=== PATIENT | female | born 1955 | race Caucasian/White ===

== ENCOUNTER → 2021-02-11 15:59 | Outpatient (CLI) | payer MEDICARE, MEDICAID, SELFPAY ==
--- NOTE | 2021-02-11 16:22 | DI.MRI.S_ITS ---
PROCEDURE: MR HEAD/BRAIN WO/W CON INDICATIONS: BREAST CANCER TECHNIQUE: Noncontrast axial T1 spin echo, axial T2 fast spin echo, sagittal and axial FLAIR, coronal T2 fast spin echo, axial gradient echo, axial diffusion and ADC through the brain. After the administration of contrast, axial and coronal 3D VIBE or T1 spin echo with fat saturation through the brain. COMPARISON: None. FINDINGS: Image quality: Excellent. CSF Spaces: Basal cisterns are patent. No extra-axial fluid collections. Ventricles are normal in size and shape. Brain: No midline shift. No intracranial bleeds or masses. There is mild cerebral volume loss. No abnormal intracranial enhancement. The brainstem appears normal. Diffusion-weighted images demonstrate no acute ischemic insults. No chronic ischemic insults. Normal intravascular flow voids are present. Skull and face: Calvarial marrow is normal in signal. Orbits appear normal. Sinuses: Sinuses and mastoids appear clear. IMPRESSION: 1. No evidence of metastatic disease. 2. No abnormal intracranial mass or mass effect. 3. No suspicious postcontrast enhancement. 4. Mild, diffuse cerebral volume loss. Dictated by: Dottie Munoz MD, PhD on 02/14/2021 at 10:43 Approved by: Dottie Munoz MD, PhD on 02/14/2021 at 10:47
== END ==
PROVIDERS: Referring Provider Physician Assistant; Visit Provider Physician Assistant
DX: C50.911 Malignant neoplasm of unspecified site of right female breast (principal); C79.51 Secondary malignant neoplasm of bone; D46.9 Myelodysplastic syndrome, unspecified
CPT/HCPCS: 70553; A9579

== ENCOUNTER 2021-02-17 15:11 | Inpatient (IN) | payer MEDICARE, MEDICAID, SELFPAY ==
[2021-02-17] VITALS (16 sets, daily range): BP systolic 167–212; BP diastolic 75–87; PULSE 75–100; RESP 18–20; TEMP 36–37.1; O2SAT 98–100; BMI 29.5
--- NOTE | 2021-02-17 | DI.RAD.S_ITS ---
PROCEDURE: XR FEMUR LT MIN 2V INDICATIONS: fall TECHNIQUE: For views of the femur were acquired. COMPARISON: [facility], CR, XR HIP W PEL IF DONE LT 2V, 02/17/2021, 15:34. FINDINGS: Bones: There is an intertrochanteric fracture of the proximal left femur with associated moderate posterior and lateral displacement of the distal component. There is also moderate varus angulation. The distal femur appears intact. The visualized bony pelvis also appears intact. Soft tissues: No suspicious soft tissue calcifications or masses. IMPRESSION: 1. Moderately displaced and angulated intertrochanteric fracture of the proximal left femur. Dictated by: René Parish M.D. on 02/17/2021 at 17:42 Approved by: René Parish M.D. on 02/17/2021 at 17:43
--- NOTE | 2021-02-17 15:19 | DI.RAD.S_ITS ---
PROCEDURE: XR HIP W PEL IF DONE LT 2V INDICATIONS: left hip pain,short/rotate after fall TECHNIQUE: AP pelvis with AP and lateral view of the left hip. COMPARISON: None. FINDINGS: Bones: There is a moderately displaced intertrochanteric fracture of the proximal left femur with lateral displacement of the distal component. There is associated moderate varus angulation. The hip joint appears congruent. Pelvic ring appears intact. No suspicious bony lesions. Soft tissues: The visualized bowel gas pattern is normal. IMPRESSION: 1. Moderately displaced and angulated intertrochanteric fracture of the proximal left femur. Dictated by: René Parish M.D. on 02/17/2021 at 17:28 Approved by: René Parish M.D. on 02/17/2021 at 17:30
[2021-02-17] MEDS: MORPHINE 4 MG/ML INJ IV (15:56)
--- NOTE | 2021-02-17 16:18 | ED.FALL ---
HPI - Fall General Chief Complaint: Fall Stated Complaint: left hip pain after mechanical GLF Time Seen by Provider: 02/17/21 15:56 Source: patient Mode of arrival: EMS History of Present Illness HPI Narrative: 66-year-old woman with a history of stage IV breast cancer with multiple metastases to bones. Had a mechanical fall at 2:00 p.m. 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 She does not note any worsening of her baseline weakness and malaise. No recent fevers, vomiting or diarrhea. Pain has been increasing recently and her fentanyl patch was increased to 125 mcg last week. She has regular home healthcare and home palliative care. She describes no specific chest pain or dyspnea palpitations at this time. Does not describe any syncopal episodes or palpitations prior to her fall. Related Data Allergies Allergy/AdvReac Type Severity Reaction Status Date / Time oxycodone AdvReac ITCHING Verified 02/17/21 19:03 Review of Systems Review of Systems Narrative: Remainder of review of systems is otherwise unremarkable Patient History Medical History (Updated 02/17/21 @ 19:37 by Nathalie Lucio MD) Anxiety Breast cancer C5 vertebral fracture Cholecystitis DNR (do not resuscitate) Myelodysplastic syndrome Sixth cranial nerve palsy Social History (Updated 02/17/21 @ 17:17 by Nathalie Lucio MD) Smoking Status: Unknown if ever smoked alcohol intake: former substance use type: former substance user Smoking Status: Unknown if ever smoked alcohol intake frequency: holidays/special occasions only Substance Use Type: does not use Exam Narrative Exam Narrative: General: In moderate distress secondary to pain. Able to give a complete and coherent history. HEENT: Moist mucous membranes, left eye has been surgically removed. Respiratory: Lungs are clear to auscultation, no wheezing no rales no rhonchi. Full and symmetrical air movement Chest: Normal right breast post lumpectomy, left posterior lower ribs with some tenderness to palpation without contusion or abrasion to the skin Cardiac: Regular rate and rhythm no murmurs no bruits Abdomen: Soft, nontender, good bowel tones, no flank pain Skin: Warm and dry, no rashes Neurologic: Globally weak but Grossly neurologically intact with no obvious asymmetries or abnormalities Extremities: Mild bruise to the left lateral thigh left knee left leg is internally rotated and foreshortened. Neurologically intact distally. Right arm with minor edema secondary to his and lymph node dissection right axilla. Psych: Cooperative, appropriate insight and affect Initial Vital Signs Initial Vital Signs: Vital Signs Temperature 98.7 F 02/17/21 15:15 Pulse Rate 89 02/17/21 15:15 Respiratory Rate 20 02/17/21 15:15 Blood Pressure 180/84 H 02/17/21 15:15 Pulse Oximetry 100 02/17/21 15:15 Course Course Additional Information: Palliative care nurse, Tamika Keane [phone] very familiar with case and happy to assist as needed Orders Ordered: ED Orders 02/17/21 15:19 XR hip w pel if done LT 2V Stat 02/17/21 16:23 XR ribs LT min 3V w CXR1V Stat 02/17/21 17:32 UA Complete [Urinalysis and Microscopic] Stat 02/17/21 17:40 Complete Blood Count AUTO DIFF Stat Comprehensive Metabolic Panel Stat 02/17/21 18:00 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) Stat Discontinued Medications Clonazepam (Clonazepam 0.5 Mg Tablet) 1 mg PO NOW ONE Stop: 02/17/21 17:25 Last Admin: 02/17/21 17:49 Dose: 1 mg Documented by: PALAKONECatalina Fentanyl (Fentanyl 100 Mcg/2 Ml Inj) 100 mcg IV NOW ONE Stop: 02/17/21 16:24 Last Admin: 02/17/21 16:52 Dose: 100 mcg Documented by: PALAKONER Morphine Sulfate (Morphine 4 Mg/Ml Inj) 4 mg IV NOW ONE Stop: 02/17/21 15:51 Last Admin: 02/17/21 15:56 Dose: 4 mg Documented by: RASHEL Vital Signs Vital signs: Vital Signs - 8 hr 02/17/21 15:15 02/17/21 15:32 02/17/21 15:38 Temperature 98.7 F Pulse Rate 89 86 88 Respiratory Rate 20 Blood Pressure 180/84 H 180/84 H Pulse Oximetry 100 100 100 02/17/21 16:00 02/17/21 16:30 02/17/21 17:27 Temperature Pulse Rate 85 81 91 H Respiratory Rate Blood Pressure 170/75 H 168/75 H Pulse Oximetry 100 98 99 02/17/21 17:30 02/17/21 18:00 02/17/21 18:30 Temperature Pulse Rate 89 100 H 84 Respiratory Rate Blood Pressure Pulse Oximetry 100 100 98 02/17/21 18:46 02/17/21 19:00 02/17/21 19:01 Temperature Pulse Rate 93 H 80 80 Respiratory Rate Blood Pressure 212/87 H 175/79 H Pulse Oximetry 99 98 98 MDM - Fall Medical Records Attestation: I reviewed the patient's medical records. Lab Data Attestation: I reviewed the patient's lab results. Result diagrams: 02/17/21 17:40 02/17/21 17:40 Labs: Lab Results 02/17/21 02/17/21 02/17/21 Range/Units 17:32 17:40 17:40 WBC 6.2 (4.5-11.0) X10^3/uL RBC 4.74 (4.0-5.2) X10^6/uL Hgb 13.9 (12.0-16.0) g/dL Hct 40.6 (36-46) % MCV 85.6 (80-100) fL MCH 29.3 (26-34) PG MCHC 34.2 (30-36) % RDW 14.3 (11.6-14.8) % Plt Count 275 (150-400) X10^3/uL Neut % (Auto) 83.7 H (50-75) % Lymph % (Auto) 10.3 L (25-40) % [place] % (Auto) 5.1 (3-14) % Eos % (Auto) 0.2 L (2-4) % Baso % (Auto) 0.7 (0-2) % Neut # (Auto) 5200 (4289-6174) /uL Lymph # (Auto) 600 L (8787-3186) /uL [place] # (Auto) 300 (0-900) /uL Eos # (Auto) 0 (0-450) /uL Baso # (Auto) 0 (0-100) /uL Sodium 131 L (137-145) mmol/L Potassium 5.0 (3.4-5.1) mmol/L Chloride 93 L (98-107) mmol/L Carbon Dioxide 14 L (22-32) mmol/L BUN 18 H (7-17) mg/dL Creatinine 1.08 H (0.52-1.04) mg/dL Estimated GFR 50.6 L (>60) mL/min BUN/Creatinine Ratio 16.7 (6-22) Glucose 467 H (80-110) mg/dL Calcium 10.0 (8.4-10.2) mg/dL Total Bilirubin 0.7 (0.2-1.3) mg/dL AST 31 (14-36) IU/L ALT 18 (<35) IU/L Alkaline Phosphatase 147 H (38-126) U/L Total Protein 8.3 H (6.3-8.2) g/dL Albumin 4.8 (3.5-5.0) g/dL Globulin 3.5 (1.7-4.1) g/dL Albumin/Globulin Ratio 1.4 (1.0-2.8) Urine Color Yellow Urine Appearance Slightly cloudy Urine pH 5.0 (4.5-8.0) Ur Specific [place] 1.025 (1.000-1.035) Urine Protein 2+ H (Negative) Urine Glucose (UA) 1+ H (Negative) g/dL Urine Ketones 3+ H (NEGATIVE) Urine Occult Blood 3+ H (Negative) Urine Nitrate Negative (Negative) Urine Bilirubin Negative (NEGATIVE) Urine Urobilinogen 0.2 (0.2) E.U./dL Ur Leukocyte Esterase Negative (NEGATIVE) Urine RBC 1-5/hpf (0-5/HPF) Urine WBC 0-1/hpf (0-5/HPF) Amorphous Sediment 1+ Urine Bacteria None seen (None) Ur Culture Indicated? Cult not indicated SARS-CoV-2 (PCR) (Negative) 02/17/21 Range/Units 18:00 WBC (4.5-11.0) X10^3/uL RBC (4.0-5.2) X10^6/uL Hgb (12.0-16.0) g/dL Hct (36-46) % MCV (80-100) fL MCH (26-34) PG MCHC (30-36) % RDW (11.6-14.8) % Plt Count (150-400) X10^3/uL Neut % (Auto) (50-75) % Lymph % (Auto) (25-40) % [place] % (Auto) (3-14) % Eos % (Auto) (2-4) % Baso % (Auto) (0-2) % Neut # (Auto) (7643-6232) /uL Lymph # (Auto) (6964-0317) /uL [place] # (Auto) (0-900) /uL Eos # (Auto) (0-450) /uL Baso # (Auto) (0-100) /uL Sodium (137-145) mmol/L Potassium (3.4-5.1) mmol/L Chloride (98-107) mmol/L Carbon Dioxide (22-32) mmol/L BUN (7-17) mg/dL Creatinine (0.52-1.04) mg/dL Estimated GFR (>60) mL/min BUN/Creatinine Ratio (6-22) Glucose (80-110) mg/dL Calcium (8.4-10.2) mg/dL Total Bilirubin (0.2-1.3) mg/dL AST (14-36) IU/L ALT (<35) IU/L Alkaline Phosphatase (38-126) U/L Total Protein (6.3-8.2) g/dL Albumin (3.5-5.0) g/dL Globulin (1.7-4.1) g/dL Albumin/Globulin Ratio (1.0-2.8) Urine Color Urine Appearance Urine pH (4.5-8.0) Ur Specific [place] (1.000-1.035) Urine Protein (Negative) Urine Glucose (UA) (Negative) g/dL Urine Ketones (NEGATIVE) Urine Occult Blood (Negative) Urine Nitrate (Negative) Urine Bilirubin (NEGATIVE) Urine Urobilinogen (0.2) E.U./dL Ur Leukocyte Esterase (NEGATIVE) Urine RBC (0-5/HPF) Urine WBC (0-5/HPF) Amorphous Sediment Urine Bacteria (None) Ur Culture Indicated? SARS-CoV-2 (PCR) Negative (Negative) Imaging Data XR hip and femur: Radiologist's Impression: FINDINGS: Bones: There is a moderately displaced intertrochanteric fracture of the proximal left femur with lateral displacement of the distal component. There is associated moderate varus angulation. The hip joint appears congruent. Pelvic ring appears intact. No suspicious bony lesions. Soft tissues: The visualized bowel gas pattern is normal. IMPRESSION: 1. Moderately displaced and angulated intertrochanteric fracture of the proximal left femur. Dictated by: René Parish M.D. on 02/17/2021 at 17:28 FINDINGS: Bones: There is an intertrochanteric fracture of the proximal left femur with associated moderate posterior and lateral displacement of the distal component. There is also moderate varus angulation. The distal femur appears intact. The visualized bony pelvis also appears intact. Soft tissues: No suspicious soft tissue calcifications or masses. IMPRESSION: 1. Moderately displaced and angulated intertrochanteric fracture of the proximal left femur. Dictated by: René Parish M.D. on 02/17/2021 at 17:42 MDM Narrative Medical decision making narrative: 66-year-old woman with myelodysplastic syndrome and metastatic breast cancer along with chronic opioid and benzo habituation presents with a left intratrochanteric hip fracture requiring surgical fixation. This does not appear to be a pathologic fracture. Reason for the fracture is a mechanical fall with no evidence of dramatic abnormalities beyond her baseline. Care is reviewed with Dr. Garay, she requests that the patient is NPO after midnight and will anticipate surgical intervention tomorrow. Preoperative labs and x-ray are reviewed COVID test is done. Patient will be admitted to the hospitalist service for management of her MDS, opioid and benzodiazepine habituation, metastatic breast cancer and postoperative needs. [facility] and care is accepted. Discharge Plan Departure Patient Disposition: Admitted As Inpatient Clinical Impression: Myelodysplastic syndrome, DNR (do not resuscitate) Breast cancer Qualifiers: Breast location: unspecified site of breast Estrogen receptor status: unspecified Patient sex: female Laterality: right Qualified Code(s): C50.911 - Malignant neoplasm of unspecified site of right female breast Closed hip fracture Qualifiers: Encounter type: initial encounter Laterality: left Qualified Code(s): S72.002A - Fracture of unspecified part of neck of left femur, initial encounter for closed fracture
--- NOTE | 2021-02-17 16:23 | DI.RAD.S_ITS ---
PROCEDURE: XR RIBS LT MIN 3V W CXR1V INDICATIONS: fall TECHNIQUE: Two views of the left ribs were acquired, along with a single view chest. COMPARISON: None. FINDINGS: Surgical changes and devices: There are surgical clips in the right axilla and right breast. Bones and chest wall: No displaced rib fracture identified. No suspicious bony lesions. Overlying soft tissues appear unremarkable. Lungs and pleura: No pleural effusions or pneumothorax. Lungs appear clear. Mediastinum: Mediastinal contours appear normal. Heart size is normal. IMPRESSION: 1. No displaced rib fracture identified. Dictated by: René Parish M.D. on 02/17/2021 at 17:30 Approved by: René Parish M.D. on 02/17/2021 at 17:31
[2021-02-17] MEDS: fentaNYL 100 MCG/2 ML INJ IV (16:52)
[2021-02-17] MEDS: clonazePAM 0.5 MG TABLET 1 MG PO (17:49)
[2021-02-17 18:03] LABS: Add Manual Diff / Slide Review NO; Basophils Absolute Auto 0 /uL (0-100); Basophils Percent Auto 0.7 % (0-2); Eosinophils Absolute Auto 0 /uL (0-450); Eosinophils Percent Auto 0.2 % (2-4); Hematocrit 40.6 % (36-46); Hemoglobin 13.9 g/dL (12.0-16.0); Lymphocytes Absolute Auto 600 /uL (1100-4500); Lymphocytes Percent Auto 10.3 % (25-40); Mean Corpuscular HGB Conc 34.2 % (30-36); Mean Corpuscular Hemoglobin 29.3 PG (26-34); Mean Corpuscular Volume 85.6 fL (80-100); Monocytes Absolute Auto 300 /uL (0-900); Monocytes Percent Auto 5.1 % (3-14); Neutrophils Absolute Auto 5200 /uL (1500-7000); Neutrophils Percent Auto 83.7 % (50-75); Platelet Count 275 X10^3/uL (150-400); Red Blood Cell Count 4.74 X10^6/uL (4.0-5.2); Red Cell Distribution Width 14.3 % (11.6-14.8); White Blood Cell Count 6.2 X10^3/uL (4.5-11.0)
[2021-02-17 18:18] LABS: Alanine Aminotransferase 18 IU/L (<35); Albumin 4.8 g/dL (3.5-5.0); Albumin Globulin Ratio 1.4 (1.0-2.8); Alkaline Phosphatase 147 U/L (38-126); Aspartate Aminotransferase 31 IU/L (14-36); BUN Creatinine Ratio 16.7 (6-22); Bilirubin Total 0.7 mg/dL (0.2-1.3); Blood Urea Nitrogen 18 mg/dL (7-17); Carbon Dioxide 14 mmol/L (22-32); Chloride 93 mmol/L (98-107); Estimated Glomerular Filt Rate 50.6 mL/min (>60); Globulin 3.5 g/dL (1.7-4.1); Glucose 467 mg/dL (80-110); HEMOLYSIS < 15 (0-50); Sodium 131 mmol/L (137-145); Total Protein 8.3 g/dL (6.3-8.2)
--- NOTE | 2021-02-17 19:04 | PC.NURSE ---
pt is wearing a fentanyl patch on her rt chest. pt has palliative care, TELEGRAPH MECHANIC Diya [phone]. for questions.
[2021-02-17 19:08] LABS: Bacteria Urine None Seen
[2021-02-17 19:18] LABS: Bilirubin Urine UA NEGATIVE (NEGATIVE); Color Urine UA YELLOW; Glucose Urine UA 1+ g/dL (Negative); Ketones Urine UA 3+ (NEGATIVE); Leukocyte Esterase Urine UA NEGATIVE (NEGATIVE); Nitrite Urine UA NEGATIVE (Negative); Occult Blood Urine UA 3+ (Negative); Protein Urine UA 2+ (Negative); Specific Gravity Urine UA 1.025 (1.000-1.035); Urobilinogen Urine UA 0.2 E.U./dL (0.2)
[2021-02-17 19:24] LABS: Appearance Urine UA Slightly Cloudy
[2021-02-17 19:26] LABS: Amorphous Sediment Urine 1+; Culture Indicated Urine Cult Not Indicated; RBC Urine 1-5/HPF (0-5/HPF); WBC Urine 0-1/HPF (0-5/HPF)
[2021-02-17 19:33] LABS: COVID19 - ADMIT (NP swab/PCR) Negative (Negative)
[2021-02-17 20:03] LABS: Magnesium 2.2 mg/dL (1.6-2.3); Phosphorous 2.9 mg/dL (2.8-4.1)
[2021-02-17 20:05] LABS: Ketones (Beta-Hydroxybutyrate) 9.07 mmol/L (<0.27)
[2021-02-17] MEDS: SODIUM CHLORIDE 0.9% 1,000 ML 1000 ML IV (20:24)
[2021-02-17] MEDS: HYDROMORPHONE 1 MG INJ IV (20:35)
[2021-02-17 20:36] LABS: Hemoglobin A1C% w Est Avg Glu 6.4 % (4.0-6.0)
[2021-02-17 20:36] LABS: Ur Creatinine Normal (Normal); Ur Specific Gravity Normal (Normal); Urine pH Normal (Normal)
[2021-02-17 20:37] LABS: UR Morphine/Opiate cutoff 300 Positive (Negative); Urine Amphetamines Negative (Negative); Urine Barbiturates Negative (Negative); Urine Benzodiazepines Negative (Negative); Urine Cocaine Negative (Negative); Urine MDMA Negative (Negative); Urine Methadone Negative (Negative); Urine Methamphetamines Negative (Negative); Urine Oxycodone Positive (Negative); Urine Phencyclidine Negative (Negative); Urine Tetrahydrocannabinol Negative (Negative); Urine Tricyclic Antidepressant Negative (Negative)
[2021-02-17] MEDS: INSULIN ASPART 100 UNIT/ML INSULN PEN SUBCUT (20:40)
[2021-02-17 20:51] LABS: Lactate (Lactic Acid) 1.2 mmol/L (0.7-2.1)
[2021-02-17 21:04] LABS: Troponin I 0.017 ng/mL (0.01-0.034)
[2021-02-17 21:27] LABS: NT-proBNP (BNP-Adult 18+) 470 pg/mL (<125)
[2021-02-17] MEDS: ACETAMINOPHEN 325 MG TABLET 975 MG PO (21:34)
[2021-02-17] MEDS: SODIUM CHLORIDE 0.9% 1,000 ML 150 ML IV (21:34)
[2021-02-17] MEDS: AMITRIPTYLINE 25 MG TABLET PO (21:36)
[2021-02-17] MEDS: HYDROMORPHONE 0.5 MG INJ 1 MG IV (21:40)
[2021-02-18] VITALS (24 sets, daily range): BP systolic 145–201; BP diastolic 64–97; PULSE 74–111; RESP 8–32; TEMP 36.2–37.3; O2SAT 97–100; BMI 29.5
--- NOTE | 2021-02-18 | DI.RAD.S_ITS ---
PROCEDURE: XR HIP W PEL IF DONE LT 2V INDICATIONS: INTRA OP IM NAILING TECHNIQUE: AP pelvis with lateral view(s) of the left hip(s). COMPARISON: [facility], CR, XR HIP W PEL IF DONE LT 2V, 02/17/2021, 15:34. FINDINGS: Intraoperative images demonstrate anatomic alignment of left femur subtrochanteric fracture following placement of dynamic compression screw, intramedullary armaan with proximal cerclage wire and 2 distal interlocking screws. IMPRESSION: Expected intraoperative images for ORIF of left femur subtrochanteric fracture with anatomic alignment of fracture fragments. Dictated by: Dottie Munoz MD, PhD on 02/18/2021 at 16:51 Approved by: Dottie Munoz MD, PhD on 02/18/2021 at 16:54
--- NOTE | 2021-02-18 | DI.RAD.S_ITS ---
PROCEDURE: XR FEMUR LT MIN 2V INDICATIONS: POST OP LEFT FEMUR TECHNIQUE: To views of the femur were acquired. COMPARISON: [facility], CR, XR FEMUR LT MIN 2V, 02/17/2021, 17:01. FINDINGS: Bones: Status post ORIF of left subtrochanteric femur fracture with placement of dynamic compression screw and intramedullary armaan with proximal cerclage wire and 2 distal interlocking screws. There is near anatomic alignment of the femur fracture following fixation. Soft tissues: No suspicious soft tissue calcifications or masses. IMPRESSION: Near anatomic alignment following ORIF of left femur fracture. Dictated by: Dottie Munoz MD, PhD on 02/18/2021 at 16:54 Approved by: Dottie Munoz MD, PhD on 02/18/2021 at 16:55
--- NOTE | 2021-02-18 | PATH_ITS ---
[facility] Accession Number: [id number] . 01 Material submitted: . femur - LEFT FEMUR . 01 Diagnosis: Left Femur, Excisions: Fragments of trabecular bone and fibrous tissue with metastatic adenocarcinoma, consistent with breast origin; see comment. MRV 02/23/2021 1357 Local . 01 Comment: Sections demonstrate fragments of osteocartilaginous tissue with fibrosis and associated fibroadipose tissue with an infiltrative metastatic adenocarcinoma present. A limited immunohistochemical staining panel was performed which demonstrates the lesional cells are variably positive for CK7, focally positive for mammaglobin, and diffuse nuclear positivity for GATA3, consistent with breast origin. . Predictive marker immunohistochemical studies are performed on block A2 with the invasive carcinoma showing the following results: . Estrogen receptor (SP1): Positive (25%, weak intensity). Progesterone receptor (1E2): Positive (15%, weak intensity). Her2 (4B5): Negative. . Internal controls for ER and IN are not present; false negative results cannot be excluded. Cold ischemic time is <5 minutes. Formalin fixation time is unknown. The scoring criteria for breast biomarkers by immunohistochemistry is based on the ASCO/CAP guidelines (Mauri AC et al, J Clin Oncol: 2018 May 21;36(20):4411-8676 and Amina ME et al, Arch Pathol Lab Med: 2009;134(6):907-22). Deparaffinized sections of formalin fixed tissue (along with appropriate positive controls) are incubated with the above antibody(s). Using the automated [place] stainer, tissue is incubated with the designated antibody which is then localized by a non-biotin, dual polymer detection system. The external controls are reviewed for appropriate reactivity and found to be adequate. Results on the target cell population are indicated above. These tests have not been validated on decalcified tissue and falsely decreased staining cannot be entirely excluded. This test was developed and its performance characteristics determined by [facility]. It has not been cleared or approved by the U.S. Food and Drug Administration. The FDA has determined that such clearance or approval is not necessary. This test is used for clinical purposes. It should not be regarded as investigational or for research. . These findings were reviewed with Dr. Garay on 02/23/2021. . This case has been reviewed by Dr. Kim Barreto. . 01 Electronically signed: . Rashel Trinh MD, Dermatopathologist NPI- [id number] . 01 Gross description: . The specimen is received in formalin, labeled left femur, and consists of multiple irregular red-brown to bourgeois-pink fragments of bone and soft tissue measuring 5.5 x 5.0 x 2.0 cm in aggregate. [employer] sections are submitted following decalcification in cassettes A1-A4. ([id number]) /[facility] 02/19/[address] [place] [address] . 01 Pathologist provided ICD-10: C79.51 . 01 CPT . 370039, 103054, 253120, 128811, 563727, [id number], [id number] Performed at: 01 [facility] [address] [place] [address] [id number] MD René Hogan MD Phone: [phone]
[2021-02-18] MEDS: INSULIN ASPART 100 UNIT/ML INSULN PEN SUBCUT ×2 (00:12→01:32)
[2021-02-18 01:05] LABS: Magnesium 2.1 mg/dL (1.6-2.3)
[2021-02-18 01:06] LABS: BUN Creatinine Ratio 16.1 (6-22); Blood Urea Nitrogen 15 mg/dL (7-17); Calcium 9.2 mg/dL (8.4-10.2); Carbon Dioxide 13 mmol/L (22-32); Chloride 99 mmol/L (98-107); Estimated Glomerular Filt Rate > 60.0 mL/min (>60); Glucose 366 mg/dL (80-110); HEMOLYSIS < 15 (0-50); Sodium 133 mmol/L (137-145)
--- NOTE | 2021-02-18 01:54 | PC.NURSE ---
Addendum entered by Teodora Gramajo R.N. 02/18/21 02:19: Report given to Lata, STUDIO MUSICIAN, and patient transferred to room 228 Original Note: patient is alert and oriented but very anxious. When staff not in room is lying quietly with FLACC of 0 but states pain is 9/10 but also states pain is always at 8/10. At that time was too early to give additional pain medication and per Moncho FELDMAN, he would like staff to medicate more on FLACC score than on patient statement of pain. Is wearing a patch over left eye and states she has double vision in that eye. Breath sounds CTA with RA sat of 100%. HRR with telemetry reading of SR. BP elevated at 154/82 which is improved from earlier readings. Denies nausea. BT present and abdomen is soft. Indwelling catheter is patent; urine is clear yellow. Is refusing to be moved in any way. Refusing to have SCD's applied. CBG at 0000 was 334 and was given SS coverage insulin. Moncho FELDMAN, informed of reading when he was available and additional insulin ordered. Lab was drawn and now received order to transfer to ICU for insulin drip. Fall risk score is high and bed alarm is activated.
--- NOTE | 2021-02-18 02:04 | P.HP_ITS ---
History of Present Illness History of Present Illness Date Patient Seen: 02/17/21 Time Patient Seen: 20:40 Chief complaint: left hip pain after mechanical GLF Narrative: Ms. Zofia Ingram is a 66-year-old female with a past medical history significant for stage IV breast cancer with multiple metastases to the bone, myelodysplastic dysplasia, 6 cranial nerve palsy with diplopia, right arm lymphedema and cholecystitis who presents to the ER via EMS following a twisting fall. The patient states she sustained a mechanical fall when she twisted and her left leg collapsed falling onto her left side.. She reports left leg knee and ankle pain and reports she tried to move her leg but was unable to do so. Patient denies loss of consciousness neck or back pain in the fall. Prior to this event the patient states she was in her usual state health. She reports she has lab work done weekly and follow-up on her breast cancer treatment with a Piqary and exemestane through [facility] and her in college is Dr. Peters. Patient reports abnormally high blood sugars for the last 9 days and was started on metformin 500 mg twice daily 2 days ago. Patient also has chronic pain for which she has fentanyl patch 125 mcg every 3 days that was changed today with oxycodone 10 mg every 4 hours as needed for breakthrough pain. The patient denies complaints of recent illness, fevers or chills. She has had no nasal congestion but endorses dry throat. She denies complaints of chest pain or palpitations adding she has left chest wall pain from the fall. She reports no shortness of breath cough or wheezing. She denies abdominal pain, nausea vomiting. She denies diarrhea or constipation stating her last bowel movement was earlier today. Upon arrival to the ER patient has a temperature 98.7?, heart rate of 89, blood pressure 180/89, respirations 20 saturating 100% on room air with a pain rating of 10/10. X-ray of hip is take which finds a moderately displaced and angulated intertrochanteric fracture of left femur. Rib x-rays are obtained finding no acute injury no fracture. On laboratory analysis the patient has white count of 6.2, hemoglobin of 13.9, hematocrit of 40.6 with platelets 275. On chemistry she has a sodium of 131 potassium of 5.0 the chloride 93 and CO of 14 with an BUN of 18 and creatinine of 1.08. Her nonfasting glucose is 467. Her anion gap is 24. On liver functions she has a total bilirubin 0.7, AST of 31, ALT of 18 alkaline phosphatase 147. Albumin is 4.8. Urinalysis: Positive for protein, glucose, ketones and blood, negative for leukocyte esterase, nitrates wbc's or bacteria. In the ER the patient received Klonopin 1 mg, fentanyl 100 mg, morphine 4 mg and had a Ruiz catheter placed. The patient is admitted to the hospital for left intertrochanteric femur fracture and diabetic ketoacidosis. Additional workup is obtained finding hemoglobin A1c of 6.4, magnesium of 2.2, phosphate of 2.9, troponin 0.17, lactate of 1.1, serum ketones of 9.07. Twelve lead EKG is obtained which finds sinus rhythm with rate of 86 with an incomplete right bundle branch block and ST inversion in V1, V2 V3 and V4. A 1 L boluses ordered with normal saline at 150 cc/hour. Insulin is ordered 5 units x 1 now with rec heck of glucose upon arrival to the floor. When patient arrived on the acute care floor blood sugar was 374 down from 467. At this time is believe the patient could be managed on the acute care floor with hydration and subcutaneous insulin. Patient History Medical History (Updated 02/17/21 @ 19:37 by Nathalie Lucio MD) Anxiety Breast cancer C5 vertebral fracture Cholecystitis DNR (do not resuscitate) Myelodysplastic syndrome Sixth cranial nerve palsy Surgical History (Updated 02/18/21 @ 02:27 by GASTON Woody) History of lumpectomy of right breast History of lymph node dissection of right axilla Family & Social History Family History (Updated 02/18/21 @ 02:28 by GASTON Woody) Father Congestive heart failure Diabetes mellitus Mother Cancer Social History: household members none Prior Living Arrangements House Safety & Behavioral: Feels Safe in Current Yes Environment Been Physically Hurt or No Threatened By a Person Suicidal Ideation Description None Suicide Plan Description No Plan Tobacco & Substance use: Smoking Status Unknown if ever smoked alcohol intake former alcohol intake frequency holiday/special occasion Substance Use Type does not use Meds Home Medications and Allergies Home Medications Medication Instructions Recorded Confirmed Type alpelisib [Piqray] 250 mg PO DAILY 02/17/21 02/17/21 History clonazepam 1 mg PO TID 02/17/21 02/17/21 History dexamethasone 5 ml PO BID 02/17/21 02/17/21 History diphenoxylate-atropine 1 tab PO PRN PRN 02/17/21 02/17/21 History exemestane 25 mg PO DAILY 02/17/21 02/17/21 History fentanyl 25 mcg TOPICAL Q3-4D 02/17/21 02/17/21 History fentanyl 100 mcg TOPICAL Q3-4D 02/17/21 02/17/21 History metformin 500 mg PO DAILY 02/17/21 02/17/21 History oxycodone 10 mg PO Q4H PRN MDD 60 mg/24 hr 02/18/21 02/18/21 History Allergies Allergy/AdvReac Type Severity Reaction Status Date / Time oxycodone AdvReac ITCHING Verified 02/17/21 19:03 Review of Systems Review of Systems ROS: Yes All systems reviewed with the patient and are negative except as otherwise documented Exam Vital Signs (past 8 hours): - 02/17/21 18:30 02/17/21 18:46 02/17/21 19:00 Temperature Pulse Rate 84 93 H 80 Respiratory Rate Blood Pressure 212/87 H Pulse Oximetry 98 99 98 02/17/21 19:01 02/17/21 19:30 02/17/21 20:34 Temperature Pulse Rate 80 80 Respiratory Rate Blood Pressure 175/79 H 167/75 H Pulse Oximetry 98 99 99 02/17/21 20:37 02/17/21 21:45 02/18/21 00:12 Temperature 96.8 F L 97.6 F Pulse Rate 75 88 Respiratory Rate 18 16 Blood Pressure 174/84 H 171/77 H 154/82 H Pulse Oximetry 100 Oxygen Delivery Method Room Air Oxygen Flow Rate 0 Narrative Exam Narrative: GENERAL APPEARANCE: well developed, well nourished, lying quietly complaints of 10 pain 10/10. HEENT: Atraumatic, PERRLA, conjunctiva clear, dysconjugate gaze with he has entropion, no sinus tenderness to percussion, no rhinorrhea, mucous membranes pink and dry NECK/THYROID: neck supple, no JVD, no carotid bruit, no thyromegaly, trachea midline. LYMPH NODES: no cervical or supraclavicular lymphadenopathy. SKIN: [place], warm and dry, skin tenting, no visible rashes or lesions. HEART: regular rate and rhythm, S1-S2, no murmur, no rubs or gallops, brisk capillary refill, no edema LUNGS: clear to auscultation bilaterally, no coarseness crackles or wheezing, no cough present CHEST: Symmetrical movement, no accessory muscle use, good tidal volume. ABDOMEN: Soft, no distention, no abdominal tenderness, no guarding or peritoneal signs, no organomegaly, no flank or suprapubic tenderness, active bowel tones. BACK: Normal curvature, nontender to palpation, no CVA tenderness on percussion EXTREMITIES: Palpable deformity proximal left anterior thigh, left leg shortened and externally rotated, distal CMS intact, no clubbing or cyanosis. NEUROLOGIC: AAO x4, no focal neurologic deficits, cranial nerves II-XII grossly intact, sensation intact to light touch, hearing grossly normal to speech. PSYCH: Patient reports pain disproportionate to presentation. She is alert, slow marlyn to speech , cooperative. Objective Labs Result Diagrams: 02/17/21 17:40 02/18/21 00:41 Labs: Laboratory Results - last 24 hr 02/17/21 02/17/21 02/17/21 17:32 17:32 17:40 WBC 6.2 RBC 4.74 Hgb 13.9 Hct 40.6 MCV 85.6 MCH 29.3 MCHC 34.2 RDW 14.3 Plt Count 275 Neut % (Auto) 83.7 H Lymph % (Auto) 10.3 L [place] % (Auto) 5.1 Eos % (Auto) 0.2 L Baso % (Auto) 0.7 Neut # (Auto) 5200 Lymph # (Auto) 600 L [place] # (Auto) 300 Eos # (Auto) 0 Baso # (Auto) 0 Sodium Potassium Chloride Carbon Dioxide BUN Creatinine Estimated GFR BUN/Creatinine Ratio Glucose Hemoglobin A1c Lactate Calcium Phosphorus Magnesium Total Bilirubin AST ALT Alkaline Phosphatase Troponin I NT-Pro-B Natriuret Pep Total Protein Albumin Globulin Albumin/Globulin Ratio Urine Color Yellow Urine Appearance Slightly cloudy Urine pH 5.0 Ur Specific Cascade 1.025 Urine Protein 2+ H Urine Glucose (UA) 1+ H Urine Ketones 3+ H Urine Occult Blood 3+ H Urine Nitrate Negative Urine Bilirubin Negative Urine Urobilinogen 0.2 Ur Leukocyte Esterase Negative Urine RBC 1-5/hpf Urine WBC 0-1/hpf Amorphous Sediment 1+ Urine Bacteria None seen Ur Culture Indicated? Cult not indicated U Opiates 300ng/mL cut Positive H Ur Oxycodone Screen Positive H Urine Methadone Screen Negative Ur Barbiturates Screen Negative U Tricyclic Antidepress Negative Ur Phencyclidine Scrn Negative Ur Amphetamines Screen Negative U Methamphetamines Scrn Negative Ur MDMA Scrn (Ecstasy) Negative U Benzodiazepines Scrn Negative Urine Cocaine Screen Negative U Marijuana (THC) Screen Negative Ketones SARS-CoV-2 (PCR) 02/17/21 02/17/21 02/17/21 17:40 17:40 17:40 WBC RBC Hgb Hct MCV MCH MCHC RDW Plt Count Neut % (Auto) Lymph % (Auto) [place] % (Auto) Eos % (Auto) Baso % (Auto) Neut # (Auto) Lymph # (Auto) [place] # (Auto) Eos # (Auto) Baso # (Auto) Sodium 131 L Potassium 5.0 Chloride 93 L Carbon Dioxide 14 L BUN 18 H Creatinine 1.08 H Estimated GFR 50.6 L BUN/Creatinine Ratio 16.7 Glucose 467 H Hemoglobin A1c Lactate Calcium 10.0 Phosphorus 2.9 Magnesium 2.2 Total Bilirubin 0.7 AST 31 ALT 18 Alkaline Phosphatase 147 H Troponin I NT-Pro-B Natriuret Pep Total Protein 8.3 H Albumin 4.8 Globulin 3.5 Albumin/Globulin Ratio 1.4 Urine Color Urine Appearance Urine pH Ur Specific Cascade Urine Protein Urine Glucose (UA) Urine Ketones Urine Occult Blood Urine Nitrate Urine Bilirubin Urine Urobilinogen Ur Leukocyte Esterase Urine RBC Urine WBC Amorphous Sediment Urine Bacteria Ur Culture Indicated? U Opiates 300ng/mL cut Ur Oxycodone Screen Urine Methadone Screen Ur Barbiturates Screen U Tricyclic Antidepress Ur Phencyclidine Scrn Ur Amphetamines Screen U Methamphetamines Scrn Ur MDMA Scrn (Ecstasy) U Benzodiazepines Scrn Urine Cocaine Screen U Marijuana (THC) Screen Ketones 9.07 H SARS-CoV-2 (PCR) 02/17/21 02/17/21 02/17/21 17:40 18:00 20:32 WBC RBC Hgb Hct MCV MCH MCHC RDW Plt Count Neut % (Auto) Lymph % (Auto) [place] % (Auto) Eos % (Auto) Baso % (Auto) Neut # (Auto) Lymph # (Auto) [place] # (Auto) Eos # (Auto) Baso # (Auto) Sodium Potassium Chloride Carbon Dioxide BUN Creatinine Estimated GFR BUN/Creatinine Ratio Glucose Hemoglobin A1c 6.4 H Lactate Calcium Phosphorus Magnesium Total Bilirubin AST ALT Alkaline Phosphatase Troponin I 0.017 NT-Pro-B Natriuret Pep Total Protein Albumin Globulin Albumin/Globulin Ratio Urine Color Urine Appearance Urine pH Ur Specific Cascade Urine Protein Urine Glucose (UA) Urine Ketones Urine Occult Blood Urine Nitrate Urine Bilirubin Urine Urobilinogen Ur Leukocyte Esterase Urine RBC Urine WBC Amorphous Sediment Urine Bacteria Ur Culture Indicated? U Opiates 300ng/mL cut Ur Oxycodone Screen Urine Methadone Screen Ur Barbiturates Screen U Tricyclic Antidepress Ur Phencyclidine Scrn Ur Amphetamines Screen U Methamphetamines Scrn Ur MDMA Scrn (Ecstasy) U Benzodiazepines Scrn Urine Cocaine Screen U Marijuana (THC) Screen Ketones SARS-CoV-2 (PCR) Negative 02/17/21 02/17/21 02/18/21 20:32 20:32 00:41 WBC RBC Hgb Hct MCV MCH MCHC RDW Plt Count Neut % (Auto) Lymph % (Auto) [place] % (Auto) Eos % (Auto) Baso % (Auto) Neut # (Auto) Lymph # (Auto) [place] # (Auto) Eos # (Auto) Baso # (Auto) Sodium 133 L Potassium 5.0 Chloride 99 Carbon Dioxide 13 L BUN 15 Creatinine 0.93 Estimated GFR > 60.0 BUN/Creatinine Ratio 16.1 Glucose 366 H D Hemoglobin A1c Lactate 1.2 Calcium 9.2 Phosphorus Magnesium Total Bilirubin AST ALT Alkaline Phosphatase Troponin I NT-Pro-B Natriuret Pep 470 H Total Protein Albumin Globulin Albumin/Globulin Ratio Urine Color Urine Appearance Urine pH Ur Specific Cascade Urine Protein Urine Glucose (UA) Urine Ketones Urine Occult Blood Urine Nitrate Urine Bilirubin Urine Urobilinogen Ur Leukocyte Esterase Urine RBC Urine WBC Amorphous Sediment Urine Bacteria Ur Culture Indicated? U Opiates 300ng/mL cut Ur Oxycodone Screen Urine Methadone Screen Ur Barbiturates Screen U Tricyclic Antidepress Ur Phencyclidine Scrn Ur Amphetamines Screen U Methamphetamines Scrn Ur MDMA Scrn (Ecstasy) U Benzodiazepines Scrn Urine Cocaine Screen U Marijuana (THC) Screen Ketones SARS-CoV-2 (PCR) 02/18/21 00:41 WBC RBC Hgb Hct MCV MCH MCHC RDW Plt Count Neut % (Auto) Lymph % (Auto) [place] % (Auto) Eos % (Auto) Baso % (Auto) Neut # (Auto) Lymph # (Auto) [place] # (Auto) Eos # (Auto) Baso # (Auto) Sodium Potassium Chloride Carbon Dioxide BUN Creatinine Estimated GFR BUN/Creatinine Ratio Glucose Hemoglobin A1c Lactate Calcium Phosphorus Magnesium 2.1 Total Bilirubin AST ALT Alkaline Phosphatase Troponin I NT-Pro-B Natriuret Pep Total Protein Albumin Globulin Albumin/Globulin Ratio Urine Color Urine Appearance Urine pH Ur Specific Cascade Urine Protein Urine Glucose (UA) Urine Ketones Urine Occult Blood Urine Nitrate Urine Bilirubin Urine Urobilinogen Ur Leukocyte Esterase Urine RBC Urine WBC Amorphous Sediment Urine Bacteria Ur Culture Indicated? U Opiates 300ng/mL cut Ur Oxycodone Screen Urine Methadone Screen Ur Barbiturates Screen U Tricyclic Antidepress Ur Phencyclidine Scrn Ur Amphetamines Screen U Methamphetamines Scrn Ur MDMA Scrn (Ecstasy) U Benzodiazepines Scrn Urine Cocaine Screen U Marijuana (THC) Screen Ketones SARS-CoV-2 (PCR) Assessment & Plan Assessment & Plan narrative: This is a 66-year-old female patient with past medical history of stage IV breast cancer with multiple Mets to the bone, myelodysplastic syndrome, 6 cranial nerve palsy with diplopia, right arm lymphedema, cholecystitis and anxiety presents to the ER following a twisting fall most likely a pathological fracture in the setting of multiple bone metastases and DKA as a complication of chemotherapy with Piqray. 1. Left intertrochanteric proximal femur fracture, acute, sequelae mechanical fa ll, present on admission, active. -x-ray left hip finds moderately displaced and angulated intertrochanteric fracture of the left femur. -Dr. Garay orthopedics is contacted to the emergency department agrees to consult. We appreciate her evaluation recommendations and treatment. -the patient has been on long-term opiate therapy, ordered delighted 1 to 2 mgs every 3 hours as needed. -patient will be NPO at midnight. -for the surgical orders per Dr. Garay. -will recheck CBC in the morning. 2. Diabetic ketoacidosis, acute, present on admission, active. -initial labs taken in the ER showed blood sugar 467, CO of 14. Her calculated anion gap is 24. -additional labs ordered: Serum ketones 9.07, magnesium 2.1, phosphorus 2.9, hemoglobin A1c 6.4. Lactate is 1.2. -per information provided by the patient's her blood sugars have been being tracked by her oncologist with hyperglycemia being a complication of use of Piqray chemotherapy. -she had been recently started on metformin 500 mg twice daily which she had taken for 2 days. -IV normal saline bolus ordered with normal saline at 150 cc/hour. -fingerstick blood sugar upon arrival which is 374. Ordered correctional insulin medium dose. -will recheck BMP and monitor anion gap and electrolytes. 3. Abnormal 12 lead EKG, acute, active. -patient's palpable reproducible left chest pain and denies shortness of breath. -patient has sustained chest trauma complains of left chest pain. Twelve lead EKG: Sinus rhythm 86, incomplete right bundle-branch block, inverted T-waves in V1 through V4. -ordered troponin which is 0.017 and proBNP which is 470. Will recheck troponin with morning labs. -patient is monitored on telemetry. 4. Stage IV breast cancer with multiple bone metastases, chronic. -the patient received surg cancer care from Dr. Peters at [facility]. -will continue current regimen of Piqray and exemestane. 5. Anxiety, chronic -the patient chronically uses clonazepam 1 mg 3 times daily. -patient received clonazepam 1 mg in the emergency department. Will continue her current home regimen prevent withdrawal symptoms. VTE prophylaxis: Contraindicated, pending surgery IV fluid: Normal saline 100 cc/hour Diet: Heart healthy, NPO at midnight Code status: Patient states her wish to be DO NOT RESUSCITATE, she designates her sister and to be her surrogate decision maker. The patient is admitted to the hospital for ground level fall with proximal femur fracture requiring surgery complicated by DKA. The patient is admitted as an inpatient with expected length of stay be greater than 2 midnights. COVID-19 COVID-19 status: Negative Result date/Date tested (Pos, Neg/Pending): 02/17/21
[2021-02-18] MEDS: SODIUM CHLORIDE 0.9% 1,000 ML 1000 ML IV (02:26)
[2021-02-18] MEDS: INSULIN DRIP PREMIX 100 UNIT/100 ML PLAST..BAG IV (02:27)
[2021-02-18 02:59] LABS: HCO3 VBG 15 mmol/L (23-28); Oxygen Saturation VBG 51 % (70-75); PCO2 VBG 30.8 mmHg (45-50); PO2 VBG 30 mmHg (35-45); Total CO2 VBG 16 mmol/L (24-29)
[2021-02-18] MEDS: ACETAMINOPHEN 325 MG TABLET 975 MG PO ×2 (04:14→20:36)
[2021-02-18 04:32] LABS: Add Manual Diff / Slide Review NO; Basophils Absolute Auto 0 /uL (0-100); Basophils Percent Auto 0.4 % (0-2); Eosinophils Absolute Auto 0 /uL (0-450); Eosinophils Percent Auto 0.3 % (2-4); Hematocrit 36.3 % (36-46); Hemoglobin 12.3 g/dL (12.0-16.0); Lymphocytes Absolute Auto 600 /uL (1100-4500); Mean Corpuscular Hemoglobin 28.8 PG (26-34); Mean Corpuscular Volume 84.7 fL (80-100); Monocytes Absolute Auto 400 /uL (0-900); Monocytes Percent Auto 8.5 % (3-14); Neutrophils Absolute Auto 3700 /uL (1500-7000); Neutrophils Percent Auto 77.8 % (50-75); Platelet Count 250 X10^3/uL (150-400); Red Blood Cell Count 4.28 X10^6/uL (4.0-5.2); Red Cell Distribution Width 14.1 % (11.6-14.8); White Blood Cell Count 4.8 X10^3/uL (4.5-11.0)
[2021-02-18 04:41] LABS: Phosphorous 2.2 mg/dL (2.8-4.1)
[2021-02-18 04:42] LABS: BUN Creatinine Ratio 14.8 (6-22); Blood Urea Nitrogen 13 mg/dL (7-17); Calcium 8.9 mg/dL (8.4-10.2); Carbon Dioxide 16 mmol/L (22-32); Chloride 103 mmol/L (98-107); Estimated Glomerular Filt Rate > 60.0 mL/min (>60); Glucose 296 mg/dL (80-110); HEMOLYSIS < 15 (0-50); Potassium 4.3 mmol/L (3.4-5.1); Sodium 135 mmol/L (137-145)
[2021-02-18 04:53] LABS: Troponin I 0.018 ng/mL (0.01-0.034)
[2021-02-18] MEDS: SODIUM CHLORIDE 0.9% 1,000 ML 100 ML IV (05:48)
[2021-02-18] MEDS: HYDROMORPHONE 1 MG INJ 2 MG IV (07:07)
[2021-02-18] MEDS: DEXTROSE 5%-0.45% NS 1,000 ML 150 ML IV (08:15)
[2021-02-18] MEDS: INSULIN GLARGINE 100 UNIT/ML 3ML PEN 20 UNIT SUBCUT ×2 (08:16→20:43)
--- NOTE | 2021-02-18 09:44 | P.HP_ITS ---
History of Present Illness History of Present Illness Date Patient Seen: 02/18/21 Time Patient Seen: 10:03 Chief complaint: left hip pain after mechanical GLF Narrative: This is a 66-year-old female who has a known history of metastatic breast cancer. She did have some aching into the left thigh. It has been getting progressively a little bit worse. She then had a fall and noted the acute onset of severe left hip pain. She was unable to weightbear on the left lower extremity. She she notes some mild left shoulder pain which has been chronic. She did and did not strike or injure her left shoulder. Patient History Medical History Anxiety Breast cancer C5 vertebral fracture Cholecystitis DNR (do not resuscitate) Myelodysplastic syndrome Sixth cranial nerve palsy Surgical History History of lumpectomy of right breast History of lymph node dissection of right axilla Family & Social History Family History Father Congestive heart failure Diabetes mellitus Mother Cancer Social History: household members none Prior Living Arrangements House Safety & Behavioral: Feels Safe in Current Yes Environment Been Physically Hurt or No Threatened By a Person Suicidal Ideation Description None Suicide Plan Description No Plan Tobacco & Substance use: Smoking Status Unknown if ever smoked alcohol intake former alcohol intake frequency holiday/special occasion Substance Use Type does not use Meds Home Medications and Allergies Home Medications Medication Instructions Recorded Confirmed Type alpelisib [Piqray] 250 mg PO DAILY 02/17/21 02/17/21 History clonazepam 1 mg PO TID 02/17/21 02/17/21 History dexamethasone 5 ml PO BID 02/17/21 02/17/21 History diphenoxylate-atropine 1 tab PO PRN PRN 02/17/21 02/17/21 History exemestane 25 mg PO DAILY 02/17/21 02/17/21 History fentanyl 25 mcg TOPICAL Q3-4D 02/17/21 02/17/21 History fentanyl 100 mcg TOPICAL Q3-4D 02/17/21 02/17/21 History metformin 500 mg PO DAILY 02/17/21 02/17/21 History oxycodone 10 mg PO Q4H PRN MDD 60 mg/24 hr 02/18/21 02/18/21 History Allergies Allergy/AdvReac Type Severity Reaction Status Date / Time oxycodone AdvReac ITCHING Verified 02/17/21 19:03 Review of Systems Review of Systems Narrative: She is resting comfortably in bed, she does note some problems with the left eye. She is using a left eye patch. She notes severe pain into the left hip. She notes that her weight has been relatively stable. She is not lightheaded or dizzy prior to the fall. The she is on longstanding cancer chemotherapeutics. She had significant left thigh pain prior to the fall. Exam Vital Signs (past 8 hours): - 02/18/21 02:33 02/18/21 04:30 02/18/21 08:00 Temperature 98.4 F 99 F 98.5 F Pulse Rate 88 74 80 Respiratory Rate 18 16 15 Blood Pressure 176/77 H 157/71 H 159/71 H Pulse Oximetry 100 99 100 Oxygen Delivery Method Room Air Oxygen Flow Rate 0 Narrative Exam Narrative: HEENT is atraumatic she has a patch over the left eye, shows restricted range of motion in her neck, lungs are clear cor is regular rate and rhythm abdomen is obese but benign, she has severe for shortening of the left leg, she can fire her toe flexors and extensors with trace motion, her calf is soft, from she does have some sensation in the left lower extremity and has capillary refill the foot is warm, the right lower extremities benign Objective Labs Result Diagrams: 02/18/21 04:06 02/18/21 04:06 Labs: Laboratory Results - last 24 hr 02/17/21 02/17/21 02/17/21 17:32 17:32 17:40 WBC 6.2 RBC 4.74 Hgb 13.9 Hct 40.6 MCV 85.6 MCH 29.3 MCHC 34.2 RDW 14.3 Plt Count 275 Neut % (Auto) 83.7 H Lymph % (Auto) 10.3 L [place] % (Auto) 5.1 Eos % (Auto) 0.2 L Baso % (Auto) 0.7 Neut # (Auto) 5200 Lymph # (Auto) 600 L [place] # (Auto) 300 Eos # (Auto) 0 Baso # (Auto) 0 VBG pH VBG pCO2 VBG pO2 VBG HCO3 VBG Total CO2 VBG O2 Saturation VBG Base Excess Sodium Potassium Chloride Carbon Dioxide BUN Creatinine Estimated GFR BUN/Creatinine Ratio Glucose Hemoglobin A1c Lactate Calcium Phosphorus Magnesium Total Bilirubin AST ALT Alkaline Phosphatase Troponin I NT-Pro-B Natriuret Pep Total Protein Albumin Globulin Albumin/Globulin Ratio Urine Color Yellow Urine Appearance Slightly cloudy Urine pH 5.0 Ur Specific [place] 1.025 Urine Protein 2+ H Urine Glucose (UA) 1+ H Urine Ketones 3+ H Urine Occult Blood 3+ H Urine Nitrate Negative Urine Bilirubin Negative Urine Urobilinogen 0.2 Ur Leukocyte Esterase Negative Urine RBC 1-5/hpf Urine WBC 0-1/hpf Amorphous Sediment 1+ Urine Bacteria None seen Ur Culture Indicated? Cult not indicated Nasal Screen MRSA (PCR) U Opiates 300ng/mL cut Positive H Ur Oxycodone Screen Positive H Urine Methadone Screen Negative Ur Barbiturates Screen Negative U Tricyclic Antidepress Negative Ur Phencyclidine Scrn Negative Ur Amphetamines Screen Negative U Methamphetamines Scrn Negative Ur MDMA Scrn (Ecstasy) Negative U Benzodiazepines Scrn Negative Urine Cocaine Screen Negative U Marijuana (THC) Screen Negative Ketones SARS-CoV-2 (PCR) 02/17/21 02/17/21 02/17/21 17:40 17:40 17:40 WBC RBC Hgb Hct MCV MCH MCHC RDW Plt Count Neut % (Auto) Lymph % (Auto) [place] % (Auto) Eos % (Auto) Baso % (Auto) Neut # (Auto) Lymph # (Auto) [place] # (Auto) Eos # (Auto) Baso # (Auto) VBG pH VBG pCO2 VBG pO2 VBG HCO3 VBG Total CO2 VBG O2 Saturation VBG Base Excess Sodium 131 L Potassium 5.0 Chloride 93 L Carbon Dioxide 14 L BUN 18 H Creatinine 1.08 H Estimated GFR 50.6 L BUN/Creatinine Ratio 16.7 Glucose 467 H Hemoglobin A1c Lactate Calcium 10.0 Phosphorus 2.9 Magnesium 2.2 Total Bilirubin 0.7 AST 31 ALT 18 Alkaline Phosphatase 147 H Troponin I NT-Pro-B Natriuret Pep Total Protein 8.3 H Albumin 4.8 Globulin 3.5 Albumin/Globulin Ratio 1.4 Urine Color Urine Appearance Urine pH Ur Specific [place] Urine Protein Urine Glucose (UA) Urine Ketones Urine Occult Blood Urine Nitrate Urine Bilirubin Urine Urobilinogen Ur Leukocyte Esterase Urine RBC Urine WBC Amorphous Sediment Urine Bacteria Ur Culture Indicated? Nasal Screen MRSA (PCR) U Opiates 300ng/mL cut Ur Oxycodone Screen Urine Methadone Screen Ur Barbiturates Screen U Tricyclic Antidepress Ur Phencyclidine Scrn Ur Amphetamines Screen U Methamphetamines Scrn Ur MDMA Scrn (Ecstasy) U Benzodiazepines Scrn Urine Cocaine Screen U Marijuana (THC) Screen Ketones 9.07 H SARS-CoV-2 (PCR) 02/17/21 02/17/21 02/17/21 17:40 18:00 20:32 WBC RBC Hgb Hct MCV MCH MCHC RDW Plt Count Neut % (Auto) Lymph % (Auto) [place] % (Auto) Eos % (Auto) Baso % (Auto) Neut # (Auto) Lymph # (Auto) [place] # (Auto) Eos # (Auto) Baso # (Auto) VBG pH VBG pCO2 VBG pO2 VBG HCO3 VBG Total CO2 VBG O2 Saturation VBG Base Excess Sodium Potassium Chloride Carbon Dioxide BUN Creatinine Estimated GFR BUN/Creatinine Ratio Glucose Hemoglobin A1c 6.4 H Lactate Calcium Phosphorus Magnesium Total Bilirubin AST ALT Alkaline Phosphatase Troponin I 0.017 NT-Pro-B Natriuret Pep Total Protein Albumin Globulin Albumin/Globulin Ratio Urine Color Urine Appearance Urine pH Ur Specific [place] Urine Protein Urine Glucose (UA) Urine Ketones Urine Occult Blood Urine Nitrate Urine Bilirubin Urine Urobilinogen Ur Leukocyte Esterase Urine RBC Urine WBC Amorphous Sediment Urine Bacteria Ur Culture Indicated? Nasal Screen MRSA (PCR) U Opiates 300ng/mL cut Ur Oxycodone Screen Urine Methadone Screen Ur Barbiturates Screen U Tricyclic Antidepress Ur Phencyclidine Scrn Ur Amphetamines Screen U Methamphetamines Scrn Ur MDMA Scrn (Ecstasy) U Benzodiazepines Scrn Urine Cocaine Screen U Marijuana (THC) Screen Ketones SARS-CoV-2 (PCR) Negative 02/17/21 02/17/21 02/18/21 20:32 20:32 00:41 WBC RBC Hgb Hct MCV MCH MCHC RDW Plt Count Neut % (Auto) Lymph % (Auto) [place] % (Auto) Eos % (Auto) Baso % (Auto) Neut # (Auto) Lymph # (Auto) [place] # (Auto) Eos # (Auto) Baso # (Auto) VBG pH VBG pCO2 VBG pO2 VBG HCO3 VBG Total CO2 VBG O2 Saturation VBG Base Excess Sodium 133 L Potassium 5.0 Chloride 99 Carbon Dioxide 13 L BUN 15 Creatinine 0.93 Estimated GFR > 60.0 BUN/Creatinine Ratio 16.1 Glucose 366 H D Hemoglobin A1c Lactate 1.2 Calcium 9.2 Phosphorus Magnesium Total Bilirubin AST ALT Alkaline Phosphatase Troponin I NT-Pro-B Natriuret Pep 470 H Total Protein Albumin Globulin Albumin/Globulin Ratio Urine Color Urine Appearance Urine pH Ur Specific [place] Urine Protein Urine Glucose (UA) Urine Ketones Urine Occult Blood Urine Nitrate Urine Bilirubin Urine Urobilinogen Ur Leukocyte Esterase Urine RBC Urine WBC Amorphous Sediment Urine Bacteria Ur Culture Indicated? Nasal Screen MRSA (PCR) U Opiates 300ng/mL cut Ur Oxycodone Screen Urine Methadone Screen Ur Barbiturates Screen U Tricyclic Antidepress Ur Phencyclidine Scrn Ur Amphetamines Screen U Methamphetamines Scrn Ur MDMA Scrn (Ecstasy) U Benzodiazepines Scrn Urine Cocaine Screen U Marijuana (THC) Screen Ketones SARS-CoV-2 (PCR) 02/18/21 02/18/21 02/18/21 00:41 02:20 02:39 WBC RBC Hgb Hct MCV MCH MCHC RDW Plt Count Neut % (Auto) Lymph % (Auto) [place] % (Auto) Eos % (Auto) Baso % (Auto) Neut # (Auto) Lymph # (Auto) [place] # (Auto) Eos # (Auto) Baso # (Auto) VBG pH 7.30 L VBG pCO2 30.8 L VBG pO2 30 L VBG HCO3 15 L VBG Total CO2 16 L VBG O2 Saturation 51 L VBG Base Excess -11.0 L Sodium Potassium Chloride Carbon Dioxide BUN Creatinine Estimated GFR BUN/Creatinine Ratio Glucose Hemoglobin A1c Lactate Calcium Phosphorus Magnesium 2.1 Total Bilirubin AST ALT Alkaline Phosphatase Troponin I NT-Pro-B Natriuret Pep Total Protein Albumin Globulin Albumin/Globulin Ratio Urine Color Urine Appearance Urine pH Ur Specific [place] Urine Protein Urine Glucose (UA) Urine Ketones Urine Occult Blood Urine Nitrate Urine Bilirubin Urine Urobilinogen Ur Leukocyte Esterase Urine RBC Urine WBC Amorphous Sediment Urine Bacteria Ur Culture Indicated? Nasal Screen MRSA (PCR) Negative for mrsa U Opiates 300ng/mL cut Ur Oxycodone Screen Urine Methadone Screen Ur Barbiturates Screen U Tricyclic Antidepress Ur Phencyclidine Scrn Ur Amphetamines Screen U Methamphetamines Scrn Ur MDMA Scrn (Ecstasy) U Benzodiazepines Scrn Urine Cocaine Screen U Marijuana (THC) Screen Ketones SARS-CoV-2 (PCR) 02/18/21 02/18/21 02/18/21 04:06 04:06 04:06 WBC 4.8 RBC 4.28 Hgb 12.3 Hct 36.3 MCV 84.7 MCH 28.8 MCHC 34.0 RDW 14.1 Plt Count 250 Neut % (Auto) 77.8 H Lymph % (Auto) 13.0 L [place] % (Auto) 8.5 Eos % (Auto) 0.3 L Baso % (Auto) 0.4 Neut # (Auto) 3700 Lymph # (Auto) 600 L [place] # (Auto) 400 Eos # (Auto) 0 Baso # (Auto) 0 VBG pH VBG pCO2 VBG pO2 VBG HCO3 VBG Total CO2 VBG O2 Saturation VBG Base Excess Sodium 135 L Potassium 4.3 Chloride 103 Carbon Dioxide 16 L BUN 13 Creatinine 0.88 Estimated GFR > 60.0 BUN/Creatinine Ratio 14.8 Glucose 296 H Hemoglobin A1c Lactate Calcium 8.9 Phosphorus 2.2 L Magnesium 2.0 Total Bilirubin AST ALT Alkaline Phosphatase Troponin I NT-Pro-B Natriuret Pep Total Protein Albumin Globulin Albumin/Globulin Ratio Urine Color Urine Appearance Urine pH Ur Specific [place] Urine Protein Urine Glucose (UA) Urine Ketones Urine Occult Blood Urine Nitrate Urine Bilirubin Urine Urobilinogen Ur Leukocyte Esterase Urine RBC Urine WBC Amorphous Sediment Urine Bacteria Ur Culture Indicated? Nasal Screen MRSA (PCR) U Opiates 300ng/mL cut Ur Oxycodone Screen Urine Methadone Screen Ur Barbiturates Screen U Tricyclic Antidepress Ur Phencyclidine Scrn Ur Amphetamines Screen U Methamphetamines Scrn Ur MDMA Scrn (Ecstasy) U Benzodiazepines Scrn Urine Cocaine Screen U Marijuana (THC) Screen Ketones SARS-CoV-2 (PCR) 02/18/21 04:06 WBC RBC Hgb Hct MCV MCH MCHC RDW Plt Count Neut % (Auto) Lymph % (Auto) [place] % (Auto) Eos % (Auto) Baso % (Auto) Neut # (Auto) Lymph # (Auto) [place] # (Auto) Eos # (Auto) Baso # (Auto) VBG pH VBG pCO2 VBG pO2 VBG HCO3 VBG Total CO2 VBG O2 Saturation VBG Base Excess Sodium Potassium Chloride Carbon Dioxide BUN Creatinine Estimated GFR BUN/Creatinine Ratio Glucose Hemoglobin A1c Lactate Calcium Phosphorus Magnesium Total Bilirubin AST ALT Alkaline Phosphatase Troponin I 0.018 NT-Pro-B Natriuret Pep Total Protein Albumin Globulin Albumin/Globulin Ratio Urine Color Urine Appearance Urine pH Ur Specific [place] Urine Protein Urine Glucose (UA) Urine Ketones Urine Occult Blood Urine Nitrate Urine Bilirubin Urine Urobilinogen Ur Leukocyte Esterase Urine RBC Urine WBC Amorphous Sediment Urine Bacteria Ur Culture Indicated? Nasal Screen MRSA (PCR) U Opiates 300ng/mL cut Ur Oxycodone Screen Urine Methadone Screen Ur Barbiturates Screen U Tricyclic Antidepress Ur Phencyclidine Scrn Ur Amphetamines Screen U Methamphetamines Scrn Ur MDMA Scrn (Ecstasy) U Benzodiazepines Scrn Urine Cocaine Screen U Marijuana (THC) Screen Ketones SARS-CoV-2 (PCR) X-rays show a grossly displaced left subtrochanteric hip fracture with significant deformity of the left proximal femur, there is no obvious lytic lesion. Assessment & Plan Assessment & Plan narrative: Left subtrochanteric hip fracture with significant displacement, probable pathologic fracture with metastatic breast cancer. Pancytopenia which appears to be adequate for surgery, new onset diabetes which has been improved with a insulin drip. Plan is for an intramedullary rodding of the left femur with probable cerclage wire and open biopsy to look for metastatic disease. Procedure alternatives risks benefits and complications were discussed in detail. Limits of the procedure and concerns regarding long- term ability to be weight-bearing as well as the possibility of underlying metastatic disease was discussed in detail.
[2021-02-18] MEDS: HYDROMORPHONE 1 MG INJ 4 MG IV (09:59)
[2021-02-18] MEDS: INSULIN DRIP PREMIX 100 UNIT/100 ML PLAST..BAG 7.6 UNIT IV (10:01)
--- NOTE | 2021-02-18 10:12 | P.OP_ITS ---
Operative Date/Time/Diagnoses Date of procedure: 02/18/21 Time of procedure: 11:12 Pre-op diagnosis: Left subtrochanteric hip fracture with probable metastatic breast cancer Post-op diagnosis: same Procedure & Clinicians Procedure: Intramedullary rodding left femur with open biopsy left femur Same procedure as scheduled: Yes Indications: This is an unfortunate 66-year-old female with known metastatic breast cancer who had some prodrome all left thigh pain and and had a fall and noted the acute onset of severe left hip pain. Her x-rays showed a grossly displaced left subtrochanteric fracture she is brought the operating room for operative fixation with an intramedullary armaan and open biopsy to evaluate for metastatic disease. Surgeon: Alina Garay Centrifugal Spinner: Lucas Diaz Anesthesia Type: General Operative Notes Findings: no gross tumor in the subtrochanteric region, severely comminuted left subtroch fracture, acceptable reduction and fixation Closure Type: primary Specimen(s): other (Bone sent to pathology from the subtrochanteric region for receptors and pathology) Prosthetic devices, grafts, tissues, transplants, or devices: Tri Gen inter bourgeois nail left 10 x 36, 80 mm lag screw, distal interlocking screws, cerclage wire accord Estimated Blood Loss (mL): 350 Blood products transfused: none Procedure in detail: she was brought to the operating room. She underwent induction of a general anesthesia. She was meticulously transferred to the fracture table. The left femur was meticulously reduced. Fluoroscopy was used and there was adequate visualization of the proximal femur and fracture site. She was carefully prepped and draped in standard sterile fashion. A long lateral incision was made. She had significant subcutaneous tissues and an assistance was required because of the very comminuted nature of her fracture as well as her body habitus as well as concerns for pathological bone in a pathological fracture. Dissection was carried out through skin and subcutaneous tissues. Fascia was incised in line with the skin incision. A split was made along the and lateral fashion extended up into the gluteus. Retractors were placed. The fracture was still noted to be displaced partially based on the very proximal nature of the above as well as the comminution. Dissection was carried out down to the fracture site. An open biopsy was taken and was also combined with inter medullary reaming tissue and sent for pathology because of her known metastatic breast cancer. The bone did not appear to be grossly abnormal normal but it was a very comminuted fracture. The fracture was then further meticulously reduced with a combination of bone reduction clamps. I also placed a cerclage wire around the fracture site carefully reduced it and provisionally tightened the cerclage wire. Dissection was out can then carried out down to the trochanter. Pin was placed in the pro cancer and confirmed fluoroscopically. I then carefully advanced it down in work on repair maximally reduction reducing the fracture. The over Reamer was then placed and I over reamed to portion of the proximal trochanter. The fracture was then additionally reduced using the guidewire the reduction tool and also supporting the fracture and using the cerclage wire. The guidewire was passed distally. Length was with obtain for the armaan femur was reamed up to a 11-,1/2. The 36 x 11 and half mm armaan was selected. I also passed the proximal Reamer into the proximal fragment and did some additional reaming was optimize and reduction after I had passed the guide armaan distally and when we had maximally optimized the fracture reduction. The armaan was passed without difficulty. She had a relatively valgus neck. The armaan appeared to be in an acceptable position but it did not look like a get 2 screws into the head piece. Adjusted the armaan slightly to optimize the single screw position in the head. It was just a little bit inferior to the center of the head but it felt acceptable. Screw was drilled without difficulty and confirmed with fluoroscopy. Was inserted without difficulty and I left it in a static mode. Was a subtrochanteric fracture and was not felt to be helpful to dynamize it. The cerclage wire was then meticulously tightened we also carefully checked the rotation of the femur and the overall fracture alignment. Guide armaan had been removed previously. The wound was meticulously irrigated with normal saline. Fascia was closed with interrupted Vicryl. It was distally interlocked with 2 screws. The remaining wound was closed with interrupted and skin astrid. Exparel and Marcaine were injected. She tolerated the procedure well. She was transferred recovery room in satisfactory condition. She has multiple medical problems and I anticipate she will require hospitalization for several days and likely discharge to a shelter facility. Complications: none Post-operative Condition: stable Disposition: Acute Care Plan for aftercare: Fifty to 100 lb weight-bearing on the left lower extremity, okay to be up with therapy anticipate she will need rehab.
--- NOTE | 2021-02-18 11:13 | PC.NURSE ---
Addendum entered by Sam Hutchins R.N. 02/18/21 14:16: Hospitalist was updated regarding home med regimen, updates to home med list. Original Note: Rec'd call from GASTON Ferro- pt's PCP- listed as pt's emergency contact/friend. FRONT DESK REPRESENTATIVE states she would like to make sure her medication list is up-to-date and correct. States that pt is no longer taking exemestane. States that she has a call in to oncology provider to clarify her piqray dosing due to elevated blood sugars, need to dc treatment. FRONT DESK REPRESENTATIVE states that they have had to stop this medication in the past for high blood sugars and restart at a lower dose. She states that at this time anticipates medication will likely be stopped and recommends discontinuation while in hospital. She further discusses pt's pain med regimen are reports pt should be taking vicodin 5/325 1-2 tablets PO Q4H PRN with MDD 6 tablets. She states that pt typically runs out of this medication early in the month and pain management has been difficult. She states they did a recent trial with oxycodone; however, pt developed pruritus and it was thus discontinued. Updated medication list based on FRONT DESK REPRESENTATIVE reports. FRONT DESK REPRESENTATIVE further reports that pt is estranged from her family and lives alone. FRONT DESK REPRESENTATIVE states that she has one family contact, a sister, in the event pt were to pass away. Yessy Cho [phone]. Will update hospitalist.
[2021-02-18] MEDS: LACTATED RINGERS 1,000 ML 42 ML IV (11:26)
[2021-02-18] MEDS: CEFAZOLIN 2 GM/100 ML FROZ.PIGGY IV ×2 (12:20→18:34)
--- NOTE | 2021-02-18 13:33 | SUR.OPER ---
Supine on padded [place] table with bilateral legs secured in padded positioning boots and suspended in positioning spars, operative leg in traction per surgeon. Head on one pillow. Arm on non-operative side secured on padded armboard <90 degrees abduction. Arm on operative side padded and resting across chest then secured with tape over sheet. Padded perineal post in place per surgeon.
[2021-02-18] MEDS: BUPIVACAINE 0.25% W/ EPI 30 ML VIAL INJ (14:11)
--- NOTE | 2021-02-18 14:55 | P.PN_ITS ---
Subjective Subjective Interval history: This morning she states her pain is uncontrolled. Has tried not moving at all in bed because even breathing exacerbates her pain. Has been on her baseline fentanyl patch of 125mcg which was placed a day ago. Has been receiving IV dilaudid which she says does not control her pain. Exam Vital Signs (past 8 hours): - 02/18/21 08:00 02/18/21 11:05 02/18/21 11:13 Temperature 98.5 F 99.2 F 99.2 F Pulse Rate 80 80 80 Respiratory Rate 15 14 14 Blood Pressure 159/71 H 164/79 H 164/79 H Pulse Oximetry 100 99 99 Oxygen Delivery Method Room Air Oxygen Flow Rate 0 Narrative Exam Narrative: GENERAL APPEARANCE: lying in bed, trying not to move from concern for pain HEENT: PERRLA, conjunctiva clear, mucous membranes pink and dry, patch over eye NECK/THYROID: neck supple, no JVD, trachea midline. SKIN: [place], warm and dry, skin tenting, no visible rashes or lesions. HEART: regular rate and rhythm, no murmur, no edema LUNGS: clear to auscultation bilaterally, no coarseness crackles or wheezing, no cough present ABDOMEN: Soft, no abdominal tenderness, no guarding, normal bowel sounds EXTREMITIES: Palpable deformity proximal left anterior thigh, left leg shortened and externally rotated, distally sensation, motion, and pulses intact NEUROLOGIC: AAO x4, no focal neurologic deficits, cranial nerves II-XII grossly intact PSYCH: Patient reports pain severe pain Objective Labs Result Diagrams: 02/18/21 04:06 02/18/21 04:06 Labs: Laboratory Results - last 24 hr 02/17/21 02/17/21 02/17/21 17:32 17:32 17:40 WBC 6.2 RBC 4.74 Hgb 13.9 Hct 40.6 MCV 85.6 MCH 29.3 MCHC 34.2 RDW 14.3 Plt Count 275 Neut % (Auto) 83.7 H Lymph % (Auto) 10.3 L [place] % (Auto) 5.1 Eos % (Auto) 0.2 L Baso % (Auto) 0.7 Neut # (Auto) 5200 Lymph # (Auto) 600 L [place] # (Auto) 300 Eos # (Auto) 0 Baso # (Auto) 0 VBG pH VBG pCO2 VBG pO2 VBG HCO3 VBG Total CO2 VBG O2 Saturation VBG Base Excess Sodium Potassium Chloride Carbon Dioxide BUN Creatinine Estimated GFR BUN/Creatinine Ratio Glucose Hemoglobin A1c Lactate Calcium Phosphorus Magnesium Total Bilirubin AST ALT Alkaline Phosphatase Troponin I NT-Pro-B Natriuret Pep Total Protein Albumin Globulin Albumin/Globulin Ratio Urine Color Yellow Urine Appearance Slightly cloudy Urine pH 5.0 Ur Specific [place] 1.025 Urine Protein 2+ H Urine Glucose (UA) 1+ H Urine Ketones 3+ H Urine Occult Blood 3+ H Urine Nitrate Negative Urine Bilirubin Negative Urine Urobilinogen 0.2 Ur Leukocyte Esterase Negative Urine RBC 1-5/hpf Urine WBC 0-1/hpf Amorphous Sediment 1+ Urine Bacteria None seen Ur Culture Indicated? Cult not indicated Nasal Screen MRSA (PCR) U Opiates 300ng/mL cut Positive H Ur Oxycodone Screen Positive H Urine Methadone Screen Negative Ur Barbiturates Screen Negative U Tricyclic Antidepress Negative Ur Phencyclidine Scrn Negative Ur Amphetamines Screen Negative U Methamphetamines Scrn Negative Ur MDMA Scrn (Ecstasy) Negative U Benzodiazepines Scrn Negative Urine Cocaine Screen Negative U Marijuana (THC) Screen Negative Ketones SARS-CoV-2 (PCR) 02/17/21 02/17/21 02/17/21 17:40 17:40 17:40 WBC RBC Hgb Hct MCV MCH MCHC RDW Plt Count Neut % (Auto) Lymph % (Auto) [place] % (Auto) Eos % (Auto) Baso % (Auto) Neut # (Auto) Lymph # (Auto) [place] # (Auto) Eos # (Auto) Baso # (Auto) VBG pH VBG pCO2 VBG pO2 VBG HCO3 VBG Total CO2 VBG O2 Saturation VBG Base Excess Sodium 131 L Potassium 5.0 Chloride 93 L Carbon Dioxide 14 L BUN 18 H Creatinine 1.08 H Estimated GFR 50.6 L BUN/Creatinine Ratio 16.7 Glucose 467 H Hemoglobin A1c Lactate Calcium 10.0 Phosphorus 2.9 Magnesium 2.2 Total Bilirubin 0.7 AST 31 ALT 18 Alkaline Phosphatase 147 H Troponin I NT-Pro-B Natriuret Pep Total Protein 8.3 H Albumin 4.8 Globulin 3.5 Albumin/Globulin Ratio 1.4 Urine Color Urine Appearance Urine pH Ur Specific [place] Urine Protein Urine Glucose (UA) Urine Ketones Urine Occult Blood Urine Nitrate Urine Bilirubin Urine Urobilinogen Ur Leukocyte Esterase Urine RBC Urine WBC Amorphous Sediment Urine Bacteria Ur Culture Indicated? Nasal Screen MRSA (PCR) U Opiates 300ng/mL cut Ur Oxycodone Screen Urine Methadone Screen Ur Barbiturates Screen U Tricyclic Antidepress Ur Phencyclidine Scrn Ur Amphetamines Screen U Methamphetamines Scrn Ur MDMA Scrn (Ecstasy) U Benzodiazepines Scrn Urine Cocaine Screen U Marijuana (THC) Screen Ketones 9.07 H SARS-CoV-2 (PCR) 02/17/21 02/17/21 02/17/21 17:40 18:00 20:32 WBC RBC Hgb Hct MCV MCH MCHC RDW Plt Count Neut % (Auto) Lymph % (Auto) [place] % (Auto) Eos % (Auto) Baso % (Auto) Neut # (Auto) Lymph # (Auto) [place] # (Auto) Eos # (Auto) Baso # (Auto) VBG pH VBG pCO2 VBG pO2 VBG HCO3 VBG Total CO2 VBG O2 Saturation VBG Base Excess Sodium Potassium Chloride Carbon Dioxide BUN Creatinine Estimated GFR BUN/Creatinine Ratio Glucose Hemoglobin A1c 6.4 H Lactate Calcium Phosphorus Magnesium Total Bilirubin AST ALT Alkaline Phosphatase Troponin I 0.017 NT-Pro-B Natriuret Pep Total Protein Albumin Globulin Albumin/Globulin Ratio Urine Color Urine Appearance Urine pH Ur Specific [place] Urine Protein Urine Glucose (UA) Urine Ketones Urine Occult Blood Urine Nitrate Urine Bilirubin Urine Urobilinogen Ur Leukocyte Esterase Urine RBC Urine WBC Amorphous Sediment Urine Bacteria Ur Culture Indicated? Nasal Screen MRSA (PCR) U Opiates 300ng/mL cut Ur Oxycodone Screen Urine Methadone Screen Ur Barbiturates Screen U Tricyclic Antidepress Ur Phencyclidine Scrn Ur Amphetamines Screen U Methamphetamines Scrn Ur MDMA Scrn (Ecstasy) U Benzodiazepines Scrn Urine Cocaine Screen U Marijuana (THC) Screen Ketones SARS-CoV-2 (PCR) Negative 02/17/21 02/17/21 02/18/21 20:32 20:32 00:41 WBC RBC Hgb Hct MCV MCH MCHC RDW Plt Count Neut % (Auto) Lymph % (Auto) [place] % (Auto) Eos % (Auto) Baso % (Auto) Neut # (Auto) Lymph # (Auto) [place] # (Auto) Eos # (Auto) Baso # (Auto) VBG pH VBG pCO2 VBG pO2 VBG HCO3 VBG Total CO2 VBG O2 Saturation VBG Base Excess Sodium 133 L Potassium 5.0 Chloride 99 Carbon Dioxide 13 L BUN 15 Creatinine 0.93 Estimated GFR > 60.0 BUN/Creatinine Ratio 16.1 Glucose 366 H D Hemoglobin A1c Lactate 1.2 Calcium 9.2 Phosphorus Magnesium Total Bilirubin AST ALT Alkaline Phosphatase Troponin I NT-Pro-B Natriuret Pep 470 H Total Protein Albumin Globulin Albumin/Globulin Ratio Urine Color Urine Appearance Urine pH Ur Specific [place] Urine Protein Urine Glucose (UA) Urine Ketones Urine Occult Blood Urine Nitrate Urine Bilirubin Urine Urobilinogen Ur Leukocyte Esterase Urine RBC Urine WBC Amorphous Sediment Urine Bacteria Ur Culture Indicated? Nasal Screen MRSA (PCR) U Opiates 300ng/mL cut Ur Oxycodone Screen Urine Methadone Screen Ur Barbiturates Screen U Tricyclic Antidepress Ur Phencyclidine Scrn Ur Amphetamines Screen U Methamphetamines Scrn Ur MDMA Scrn (Ecstasy) U Benzodiazepines Scrn Urine Cocaine Screen U Marijuana (THC) Screen Ketones SARS-CoV-2 (PCR) 02/18/21 02/18/21 02/18/21 00:41 02:20 02:39 WBC RBC Hgb Hct MCV MCH MCHC RDW Plt Count Neut % (Auto) Lymph % (Auto) [place] % (Auto) Eos % (Auto) Baso % (Auto) Neut # (Auto) Lymph # (Auto) [place] # (Auto) Eos # (Auto) Baso # (Auto) VBG pH 7.30 L VBG pCO2 30.8 L VBG pO2 30 L VBG HCO3 15 L VBG Total CO2 16 L VBG O2 Saturation 51 L VBG Base Excess -11.0 L Sodium Potassium Chloride Carbon Dioxide BUN Creatinine Estimated GFR BUN/Creatinine Ratio Glucose Hemoglobin A1c Lactate Calcium Phosphorus Magnesium 2.1 Total Bilirubin AST ALT Alkaline Phosphatase Troponin I NT-Pro-B Natriuret Pep Total Protein Albumin Globulin Albumin/Globulin Ratio Urine Color Urine Appearance Urine pH Ur Specific [place] Urine Protein Urine Glucose (UA) Urine Ketones Urine Occult Blood Urine Nitrate Urine Bilirubin Urine Urobilinogen Ur Leukocyte Esterase Urine RBC Urine WBC Amorphous Sediment Urine Bacteria Ur Culture Indicated? Nasal Screen MRSA (PCR) Negative for mrsa U Opiates 300ng/mL cut Ur Oxycodone Screen Urine Methadone Screen Ur Barbiturates Screen U Tricyclic Antidepress Ur Phencyclidine Scrn Ur Amphetamines Screen U Methamphetamines Scrn Ur MDMA Scrn (Ecstasy) U Benzodiazepines Scrn Urine Cocaine Screen U Marijuana (THC) Screen Ketones SARS-CoV-2 (PCR) 02/18/21 02/18/21 02/18/21 04:06 04:06 04:06 WBC 4.8 RBC 4.28 Hgb 12.3 Hct 36.3 MCV 84.7 MCH 28.8 MCHC 34.0 RDW 14.1 Plt Count 250 Neut % (Auto) 77.8 H Lymph % (Auto) 13.0 L [place] % (Auto) 8.5 Eos % (Auto) 0.3 L Baso % (Auto) 0.4 Neut # (Auto) 3700 Lymph # (Auto) 600 L [place] # (Auto) 400 Eos # (Auto) 0 Baso # (Auto) 0 VBG pH VBG pCO2 VBG pO2 VBG HCO3 VBG Total CO2 VBG O2 Saturation VBG Base Excess Sodium 135 L Potassium 4.3 Chloride 103 Carbon Dioxide 16 L BUN 13 Creatinine 0.88 Estimated GFR > 60.0 BUN/Creatinine Ratio 14.8 Glucose 296 H Hemoglobin A1c Lactate Calcium 8.9 Phosphorus 2.2 L Magnesium 2.0 Total Bilirubin AST ALT Alkaline Phosphatase Troponin I NT-Pro-B Natriuret Pep Total Protein Albumin Globulin Albumin/Globulin Ratio Urine Color Urine Appearance Urine pH Ur Specific [place] Urine Protein Urine Glucose (UA) Urine Ketones Urine Occult Blood Urine Nitrate Urine Bilirubin Urine Urobilinogen Ur Leukocyte Esterase Urine RBC Urine WBC Amorphous Sediment Urine Bacteria Ur Culture Indicated? Nasal Screen MRSA (PCR) U Opiates 300ng/mL cut Ur Oxycodone Screen Urine Methadone Screen Ur Barbiturates Screen U Tricyclic Antidepress Ur Phencyclidine Scrn Ur Amphetamines Screen U Methamphetamines Scrn Ur MDMA Scrn (Ecstasy) U Benzodiazepines Scrn Urine Cocaine Screen U Marijuana (THC) Screen Ketones SARS-CoV-2 (PCR) 02/18/21 04:06 WBC RBC Hgb Hct MCV MCH MCHC RDW Plt Count Neut % (Auto) Lymph % (Auto) [place] % (Auto) Eos % (Auto) Baso % (Auto) Neut # (Auto) Lymph # (Auto) [place] # (Auto) Eos # (Auto) Baso # (Auto) VBG pH VBG pCO2 VBG pO2 VBG HCO3 VBG Total CO2 VBG O2 Saturation VBG Base Excess Sodium Potassium Chloride Carbon Dioxide BUN Creatinine Estimated GFR BUN/Creatinine Ratio Glucose Hemoglobin A1c Lactate Calcium Phosphorus Magnesium Total Bilirubin AST ALT Alkaline Phosphatase Troponin I 0.018 NT-Pro-B Natriuret Pep Total Protein Albumin Globulin Albumin/Globulin Ratio Urine Color Urine Appearance Urine pH Ur Specific [place] Urine Protein Urine Glucose (UA) Urine Ketones Urine Occult Blood Urine Nitrate Urine Bilirubin Urine Urobilinogen Ur Leukocyte Esterase Urine RBC Urine WBC Amorphous Sediment Urine Bacteria Ur Culture Indicated? Nasal Screen MRSA (PCR) U Opiates 300ng/mL cut Ur Oxycodone Screen Urine Methadone Screen Ur Barbiturates Screen U Tricyclic Antidepress Ur Phencyclidine Scrn Ur Amphetamines Screen U Methamphetamines Scrn Ur MDMA Scrn (Ecstasy) U Benzodiazepines Scrn Urine Cocaine Screen U Marijuana (THC) Screen Ketones SARS-CoV-2 (PCR) PFSH Medical History Anxiety Breast cancer C5 vertebral fracture Cholecystitis DNR (do not resuscitate) Myelodysplastic syndrome Sixth cranial nerve palsy Surgical History History of lumpectomy of right breast History of lymph node dissection of right axilla Family History Father Congestive heart failure Diabetes mellitus Mother Cancer Social History (Updated 02/17/21 @ 17:17 by Nathalie Lucio MD) household members: none Smoking Status: Former smoker alcohol intake: former substance use type: former substance user Assessment & Plan Assessment & Plan narrative: 66-year-old female patient with past medical history of stage IV breast cancer with multiple Mets to the bone, myelodysplastic syndrome, 6 cranial nerve palsy with diplopia, right arm lymphedema, cholecystitis and anxiety presents to the ER following a twisting fall most likely a pathological fracture in the setting of multiple bone metastases and DKA as a complication of chemotherapy with Piqray. 1. Left intertrochanteric proximal femur fracture, acute, sequelae mechanical fall, present on admission, active. -x-ray left hip finds moderately displaced and angulated intertrochanteric fracture of the left femur. -Dr. Garay orthopedics is contacted to the emergency department agrees to consult. Plan for OR 02/18 -the patient has been on long-term opiate therapy, increased dilaudid to 4mg q3 -will need dispo for possible SNF 2. Diabetic ketoacidosis, acute, present on admission, improved. -initial labs taken in the ER showed blood sugar 467, CO of 14. Her calculated anion gap 24. -additional labs ordered: Serum ketones 9.07, magnesium 2.1, phosphorus 2.9, hemoglobin A1c 6.4. Lactate is 1.2. -per information provided by the patient's her blood sugars have been being tracked by her oncologist with hyperglycemia being a complication of use of Piqray chemotherapy. -she had been recently started on metformin 500 mg twice daily which she had taken for 2 days. -dc piqray -IV insulin was continued until gap closed and DKA resolved on morning of 02/18, then switched to SC insulin BID with q4 achs and medium sliding scale 3. Reproducible chest pain -has TWI in v1-v4 -troponins negative -consistent with MSK pain, and no concern for cardiac now 4. Stage IV breast cancer with multiple bone metastases, chronic. -the patient received surg cancer care from Dr. Peters at [facility]. -stop piqray due to dka -per PCP not on exemestane 5. Anxiety, chronic -the patient chronically uses clonazepam 1 mg 3 times daily. -patient received clonazepam 1 mg in the emergency department. Will continue her current home regimen prevent withdrawal symptoms. VTE prophylaxis: Contraindicated, pending surgery IV fluid: Normal saline 100 cc/hour Diet: Heart healthy, NPO at midnight Code status: Patient states her wish to be DO NOT RESUSCITATE, she designates her sister and to be her surrogate decision maker.
[2021-02-18] MEDS: BUPIVACAINE LIPOSOME 266 MG/20 ML VIAL INJ (15:23)
[2021-02-18] MEDS: HYDROMORPHONE 2 MG INJ IV ×3 (16:28→17:24)
[2021-02-18] MEDS: hydrOXYzine 50 MG/ML INJ 25 MG IM (16:28)
--- NOTE | 2021-02-18 16:56 | CM.DPNOTE ---
DCP Note According to SCOTT Tom, patient listed her PCP Tamika Keane in her chart information as emergency contact, Tamika contacted and explains this was inappropriate, Tamika has a good rapport w/patient but should not be contacted as NOK. Patient has a sister that she states should only be contacted if I'm sister is Yessy Cho P# [phone], According to Dr Garay, SNF likely needed. Patient off the floor for hip repair today, bone biopsy done d/t metastatic breast CA DCP team will follow closely and plan to assess POD#1 JW
[2021-02-18] MEDS: SODIUM CHLORIDE 0.9% 1,000 ML 21 ML IV (17:02)
--- NOTE | 2021-02-18 17:12 | DIET.PN ---
Dietary Progress Note RD attempted consultation but pt still in recovery from surgery to repair acute proximal femur fracture. RD consulted for DKA as pt admitted c no known DM but BGs abnormally high x9d secondary to chemotherapy product Piqray. Pt started on 500mg Metformin bid two days ago, pts admit BG 467 c ketones 9.07. Per nursing, pt will stop Piqray therapy secondary to uncontrolled BG. RD provided supportive oncology nutrition handouts to red d/c folder. If pt hospitalized when dietary returns on 02/21 will consult further.
--- NOTE | 2021-02-18 18:09 | SUR.PHASEI ---
IV start attempts x4 without success. Midline IV started by Federica Min RN. Order received from Dr Garay.
--- NOTE | 2021-02-18 18:12 | SUR.PHASEI ---
Pt transferred to room 228 by Lois Henry RN and Nancy Wilson RN. Pt received in room by SCOTT Neil. Bedside handoff completed.
[2021-02-18] MEDS: INSULIN DRIP PREMIX 100 UNIT/100 ML PLAST..BAG 7 UNIT IV (18:27)
[2021-02-18] MEDS: HYDROMORPHONE 2 MG TABLET PO ×2 (18:37→22:10)
[2021-02-18] MEDS: DEXTROSE 5%-0.45% NS 1,000 ML 113 ML IV (19:22)
--- NOTE | 2021-02-18 19:40 | PC.NURSE ---
1800 received from PACU - Awake and alert, c/o l hip pain, l hip incision dry and intact, ice pack maintained. IV fluids switched from NS to D51/2NS per protocol with insulin drip @ 7 Units per hour. CMS intact to L extremity, SCDs on
[2021-02-18 19:43] LABS: Sodium 133 mmol/L (137-145)
[2021-02-18 19:44] LABS: Carbon Dioxide 17 mmol/L (22-32); Chloride 103 mmol/L (98-107); Potassium 3.4 mmol/L (3.4-5.1)
[2021-02-18 19:45] LABS: Blood Urea Nitrogen 7 mg/dL (7-17); Calcium 8.9 mg/dL (8.4-10.2); Estimated Glomerular Filt Rate > 60.0 mL/min (>60); Glucose 291 mg/dL (80-110); HEMOLYSIS < 15 (0-50)
[2021-02-18 20:06] LABS: Magnesium 1.8 mg/dL (1.6-2.3)
[2021-02-18] MEDS: POTASSIUM CHLORIDE 40 MEQ in SODIUM CHLORIDE 0.9% 500 ML 130 ML IV (20:12)
[2021-02-18] MEDS: LOSARTAN 50 MG TABLET 25 MG PO (20:33)
[2021-02-18] MEDS: dexAMETHasone 1 MG TABLET 0.5 MG PO (20:37)
[2021-02-18] MEDS: ASPIRIN EC 81 MG TABLET PO (20:38)
[2021-02-18] MEDS: DOCUSATE 100 MG CAPSULE PO (20:38)
[2021-02-18] MEDS: SODIUM CHLORIDE 0.9% 250 ML 21 ML IV (20:48)
[2021-02-19 01:21] LABS: BUN Creatinine Ratio 9.7 (6-22); Blood Urea Nitrogen 6 mg/dL (7-17); Calcium 8.4 mg/dL (8.4-10.2); Carbon Dioxide 21 mmol/L (22-32); Chloride 103 mmol/L (98-107); Estimated Glomerular Filt Rate > 60.0 mL/min (>60); Glucose 266 mg/dL (80-110); HEMOLYSIS < 15 (0-50); Magnesium 1.6 mg/dL (1.6-2.3); Phosphorous 1.4 mg/dL (2.8-4.1); Potassium 4.1 mmol/L (3.4-5.1); Sodium 132 mmol/L (137-145)
[2021-02-19] MEDS: CEFAZOLIN 2 GM/100 ML FROZ.PIGGY IV ×2 (01:27→08:56)
[2021-02-19 01:35] VITALS: BP 150/67; PULSE 94; RESP 18; TEMP 36.4; O2SAT 99
[2021-02-19] MEDS: INSULIN DRIP PREMIX 100 UNIT/100 ML PLAST..BAG 7.5 UNIT IV (03:10)
[2021-02-19] MEDS: DEXTROSE 5%-0.45% NS 1,000 ML 125 ML IV (03:10)
[2021-02-19 04:18] LABS: Hematocrit 29.3 % (36-46); Hemoglobin 10.3 g/dL (12.0-16.0); Mean Corpuscular HGB Conc 35.2 % (30-36); Mean Corpuscular Hemoglobin 29.1 PG (26-34); Mean Corpuscular Volume 82.7 fL (80-100); Platelet Count 212 X10^3/uL (150-400); Red Blood Cell Count 3.55 X10^6/uL (4.0-5.2); Red Cell Distribution Width 14.4 % (11.6-14.8); White Blood Cell Count 5.2 X10^3/uL (4.5-11.0)
[2021-02-19 04:27] VITALS: BP 140/63; PULSE 112; RESP 21; TEMP 36.3; O2SAT 98
[2021-02-19 04:27] LABS: BUN Creatinine Ratio 7.1 (6-22); Blood Urea Nitrogen 4 mg/dL (7-17); Calcium 8.7 mg/dL (8.4-10.2); Carbon Dioxide 22 mmol/L (22-32); Chloride 105 mmol/L (98-107); Estimated Glomerular Filt Rate > 60.0 mL/min (>60); Glucose 220 mg/dL (80-110); HEMOLYSIS 22 (0-50); Potassium 3.7 mmol/L (3.4-5.1); Sodium 133 mmol/L (137-145)
[2021-02-19] MEDS: LORazepam 2 MG/ML INJ 1 MG IV (04:50)
--- NOTE | 2021-02-19 05:13 | PC.NURSE ---
Pt. refused 5am blood glucose check on 02/19/21, Nurse is aware, nurse notify the hospitalist Chad Ivan
--- NOTE | 2021-02-19 05:35 | PC.NURSE ---
Box Maker Wood Note-Patient was drowsy and sleeping until 0400 when she woke confused and paranoid, disoriented to person, place, time, and events, also refusing CBG checks, COTTON WEIGHER OPERATOR aware, 1mg IV Ativan x1 dose given, patient's routine clonazepam restarted, stated she is in pain and wanting PO Dilaudid per prn but when this RN took it to her, she declined it. Insulin gtt titrated per protocol, see Emar and flow sheet. CMS intact to Brandon RAJAN D/I., refusing SCDs.
[2021-02-19 07:35] VITALS: BP 139/64; PULSE 114; RESP 16; TEMP 36.5; O2SAT 100
[2021-02-19] MEDS: INSULIN GLARGINE 100 UNIT/ML 3ML PEN 30 UNIT SUBCUT (07:50)
[2021-02-19] MEDS: ASPIRIN EC 81 MG TABLET PO (08:52)
[2021-02-19] MEDS: dexAMETHasone 1 MG TABLET 0.5 MG PO (08:53)
[2021-02-19] MEDS: ACETAMINOPHEN 325 MG TABLET 975 MG PO ×2 (08:53→20:38)
[2021-02-19] MEDS: MAGNESIUM OXIDE 400 MG TABLET PO (08:55)
[2021-02-19] MEDS: clonazePAM 0.5 MG TABLET 1 MG PO ×2 (09:10→20:38)
--- NOTE | 2021-02-19 09:14 | CM.DANOTE ---
Addendum entered by Annamaria Cordero 02/19/21 15:30: [employer] contacted [facility] for SNF openings and left , [facility] Admissions is not open during the weekends. [employer]ER received call from [facility] stating they are reviewing patient's file and had questions about medications at discharge. Per MD, patient will not be on chemo medications and will seek follow up from Oncology after d/c. [employer]ER completed PASRR for SNF at d/c. MATEO Taylor Addendum entered by Annamaria Cordero 02/19/21 12:57: [employer] contacted and faxed SNF referral to [facility], [facility], and [facility]. [facility] reports that they do not have beds available until Sunday02/21/21. [facility] and [facility] are reviewing SNF referral. Original Note: DCP note Patient is 66 yo Female with Medicare and Medicaid insurance. Patient admitted due to left hip pain after mechanical GLF. Patient has history of metastatic breast cancer. Per MD, patient will not d/c today and pt is on insulin. Per RN, SNF is recommended and patient is not to d/c today. [employer]ER met with patient at bedside. CH[employer] CLE[employer]ER discussed SNF and provided list of SNFs. Patient did not deny or decline SNF recommendation. Patient reports family members live out of state and reports no local supports. [employer]ER asked for consent to contact family members and patient declines, patient states that no one knows she is at the hospital. In previous [employer] note patient states that sister Yessy Hough is to be contacted only if patient is (# [phone] / [phone]. Patient states that she wants a pill and to go to the bathroom, CH[employer] AND [employer] CLE[employer]ER informs RN. [employer]ER will contact SNFs regarding possible d/c tomorrow for available SNF beds. Plan: d/c with SNF. MATEO Taylor Discharge Planning/Care Management CM Discharge Assessment Start: 02/19/21 09:05 Freq: Status: Active Protocol: Document 02/19/21 09:06 LN (Rec: 02/19/21 09:11 LN [id number]) Discharge Planning Assessment Assigned Coat Agent MATEO Yin Advance Directives? No History Provided By Patient Has Patient been admitted in last 30 No days? Prior Living Arrangements House Household Members none Independent with ADL's Yes Is patient alert and oriented? No Patient/Family Preference Prison Facility Discharge Plan Prison Facility Referrals Initiated Prison Medicare Choice List Provided Yes Please Provide Date Initial DC 02/19/21 Assessment Was Performed
--- NOTE | 2021-02-19 09:33 | PM.PNPO.1 ---
Subjective Subjective Date Patient Seen: 02/19/21 Time Patient Seen: 09:33 Interval history: Patient states that she is in mild discomfort. She reports that she has been able to ambulate using her walker and assistance with nursing. She reports good sensation throughout the bilateral lower extremities. At this time she denies fever, chills, shortness of breath, chest pain, or nausea. Exam Vital Signs (past 8 hours): - 02/19/21 04:27 Temperature 97.3 F L Pulse Rate 112 H Respiratory Rate 21 Blood Pressure 140/63 Pulse Oximetry 98 Oxygen Delivery Method Room Air Oxygen Flow Rate 0 Narrative Exam Narrative: 66-year-old female postop day 1 status post intramedullary rodding of the left femur with open biopsy of the left femur. Patient states that she is in slight discomfort. Patient ambulating with the assistance of a walker and nursing. Good sensation throughout the bilateral lower extremities. Pulses palpable along the bilateral lower extremities. Skin is warm and dry, and the skin surrounding the incision site is free of warmth, induration, erythema, or discharge. Dressing over the incision is clean and dry. Quadriceps seen firing on the left lower extremity when asked to flex the hip. Dorsiflexion, plantar flexion, eversion, inversion of the ankles performed bilaterally without difficulty or discomfort. Negative Homans sign, no other signs of DVT. Const General: cooperative and comfortable Resp Effort & Inspection: normal respiratory effort and able to speak in complete sentences Skin General: no rashes or lesions noted Objective Labs Result Diagrams: 02/19/21 04:00 02/19/21 04:00 Labs: Laboratory Results - last 24 hr 02/18/21 02/18/21 02/19/21 19:20 19:20 00:35 WBC RBC Hgb Hct MCV MCH MCHC RDW Plt Count Sodium 133 L 132 L Potassium 3.4 4.1 Chloride 103 103 Carbon Dioxide 17 L 21 L BUN 7 6 L Creatinine 0.7 0.62 Estimated GFR > 60.0 > 60.0 BUN/Creatinine Ratio 10.0 9.7 Glucose 291 H 266 H Calcium 8.9 8.4 Phosphorus 1.4 L Magnesium 1.8 1.6 02/19/21 02/19/21 04:00 04:00 WBC 5.2 RBC 3.55 L Hgb 10.3 L Hct 29.3 L MCV 82.7 MCH 29.1 MCHC 35.2 RDW 14.4 Plt Count 212 Sodium 133 L Potassium 3.7 Chloride 105 Carbon Dioxide 22 BUN 4 L Creatinine 0.56 Estimated GFR > 60.0 BUN/Creatinine Ratio 7.1 Glucose 220 H Calcium 8.7 Phosphorus Magnesium PFSH Medical History Anxiety Breast cancer C5 vertebral fracture Cholecystitis DNR (do not resuscitate) Myelodysplastic syndrome Sixth cranial nerve palsy Surgical History History of lumpectomy of right breast History of lymph node dissection of right axilla Family History Father Congestive heart failure Diabetes mellitus Mother Cancer Social History household members: none Smoking Status: Former smoker alcohol intake: former substance use type: former substance user Assessment & Plan Post-op Postoperative Procedures: Procedures Operation Date: 02/18/21 12:15 Actual Procedures Side Surgeon p Intramedullary Nailing left hip intertrochanteric fracture, open biopsy Left Alina Rose Garay MD Postoperative day: 1 Postoperative status: doing well Postoperative plan narrative: Patient is to continue working with PT at partial weight-bearing of 50-100 lb on the left lower extremity. The patient is to continue using walker for assistance. At this time orthopedics signing off on the patient. Time Spent With Patient Time with patient: 15-24 minutes
--- NOTE | 2021-02-19 09:40 | PT.IIE ---
Current Diagnoses Displaced intertrochanteric fracture of left femur, initial encounter for closed fracture (02/17/21) Surgery Performed Operation Date: 02/18/21 12:15 Actual Procedures p Intramedullary Nailing left hip intertrochanteric fracture, open biopsy(Left) - Alina Garay MD Surgical History (Last Reviewed 02/19/21 @ 09:40 by Lucas Diaz PA-C) History of lumpectomy of right breast History of lymph node dissection of right axilla Medical History (Last Reviewed 02/19/21 @ 09:40 by Lucas Diaz PA-C) Anxiety Breast cancer C5 vertebral fracture Cholecystitis DNR (do not resuscitate) Myelodysplastic syndrome Sixth cranial nerve palsy Physical Therapy Inpatient Evaluation/Re-Eval M1 PT/OT-IP Prior Functional Status Start: 02/19/21 11:40 Freq: NEEDED Status: Active Protocol: Document 02/19/21 09:40 AB (Rec: 02/19/21 12:01 [email or web address]) Medical Review Prior Functional Status Medical History Reviewed Yes Communication able to make needs known but with confusion Mobility and Gait stated that she is modified independent with all mobilities and ambulation using 4WW since the first january but was not using any AD prior to that Prior Functional Level (Other details) pt stated that she has a lozenge maker that comes in to assist her with laundry and house cleaning; has a neighbor that drives her to her appointments, has a palliative care nurse that comes in as well Social History Household Members none Living Arrangements Apartment/Condo Number of Stairs To Enter/Railing? elevator to get to her level: 3rd floor apartment Home Environment Standard Height Toilet,Walk in Shower Home Equipment Four Wheel Walker,Shower Seat with Backrest,Hand Held Shower ,Grab Bars In Shower M2 PT-IP Current Condition Start: 02/19/21 11:40 Freq: NEEDED Status: Active Protocol: Document 02/19/21 09:40 AB (Rec: 02/19/21 12:01 AB [email or web address]) Physical Therapy Current Condition Current Condition Evaluation Date 02/19/21 Treatment Diagnosis L hip fx s/p IM roding; breast CA with bone mets; difficulty in walking Onset Date 02/17/21 Precautions Other Precautions per Dr. Garay: LLE: 50-100 # PWB Weight Bearing Status Weight Bearing Status Partial Weight Bearing Allowed Weight Bearing Amount (enter % LLE: 50-100# or #) (%) M3 PT-IP Subjective Start: 02/19/21 11:40 Freq: NEEDED Status: Active Protocol: Document 02/19/21 09:40 AB (Rec: 02/19/21 12:01 [email or web address]) Subjective Physical Therapy Visit Type Type Initial Evaluation Visit Start Time 09:40 Visit Stop Time 10:23 Total Visit Minutes 43 Number of SKIMMER SCOOP OPERATOR Visits 0 Physical Therapy Visit Comments Patient Comments pt is hesistant to participate and agreed to get out of bed. pt is confused Therapy Pain Assessment Pain When Pain Assessed During Mobility Pain Present Pain Present Pain Reported Location Left Hip Scale Used pain scale not stated Pain Behaviors Calling Out,Guarding,Holding Area Pain Management Techniques Apply Cold,Distraction, Modification of Treatment,Re- positioning,Timing of Activity with Medications M4 PT-IP Mobility and Gait Start: 02/19/21 11:40 Freq: NEEDED Status: Active Protocol: Document 02/19/21 09:40 (Rec: 02/19/21 12:01 [email or web address]) PT-Bed Mobility Assessment Supine to Sit Supine to Sit Maximum Assistance Sit to Supine Sit to Supine Maximum Assistance Scooting Scooting to Edge of Bed Maximum Assistance PT-Transfer Assessment Sit to and From Stand Sit to and from Stand Maximum Assistance,2 Person Assistance,Use of Upper Extremities Equipment Transfer Assistive Device Gait Belt,Front Wheeled Walker Orthotic/Prosthetic Devices or Brace: No Transfers Transfer Destination Chair Transfer Technique Stand Step Pivot Transfer Ability Level of Assist Maximum Assistance,2 Person Assistance,Use of Upper Extremities Comments Mobility Comments pt completed supine to sit max A and max cues. required min A to maintain sitting balance on EOB. pt educated on weight bearing restriction on LLE. completed sit to stand max A x 2 and max cues. required max A to maintain weight bearing precaution. completed step transfer to chair max A x 2 and max cues. pt initially refusing to sit on chair and wants to go back to bed. pt educated and agreed to sit up for 1 hour but wants PT to come back to assist back in bed. informed nurse. positioned pt on chair . call light and table placed within reach. PT-Balance Assessment Sitting Balance and Reactions Static Sitting Balance Ability Good Dynamic Sitting Balance Ability Fair Standing Balance and Reactions Static Standing Balance Ability Poor Dynamic Standing Balance Ability Poor Device Used FWW M5 PT-IP Objective Assessments Start: 02/19/21 11:40 Freq: NEEDED Status: Active Protocol: Document 02/19/21 09:40 AB (Rec: 02/19/21 12:01 AB [email or web address]) Orientation Orientation/Cognition Level of Alertness Confusional State Orientation Name Safety Awareness Decreased Safety Awareness Gross Range of Motion Lower Extremity ROM Assessment Left Impaired Impairments increase LLE guarding and unable to check ROM: pt tends to stiffen LLE during PROM despite cues Strength Lower Extremity Strength Assessment Left Impaired Comments Strength Comments LLE muscle not able to check appropriately due to pt's muscle guarding M6 PT-IP Treatment Start: 02/19/21 11:40 Freq: NEEDED Status: Active Protocol: Document 02/19/21 09:40 AB (Rec: 02/19/21 12:01 AB [email or web address]) Physical Therapy Treatment Education Education Provided Precautions,Weight Bearing Status,Post-Op Packet,Safety M7 PT-IP Assessment and Plan Start: 02/19/21 11:40 Freq: NEEDED Status: Active Protocol: Document 02/19/21 09:40 AB (Rec: 02/19/21 12:01 AB [id number]) PT Summary Assessment and Plan Potential Rehabilitation Potential Fair Status of Condition at Evaluation Evolving Summary Impairments Pain,ROM,Strength,Balance, Coordination,Sensation,Tone, Cognition,Bed Mobility, Transfers,Gait,Activity Tolerance Assessment Summary pt with breast CA with bone mets. per EMR: s/p fall and sustained a displaced L subtrochanteric hip fx and underwent intramedullary rodding. currently, pt is allowed 50-100 lbs weight on LLE. pt is with confusion but at the same time, knows what is going on and requires motivation to participate with PT. pt requiring max A x 2 for transfers using FWW and max cues for all tasks. pt will need SNF rehab to improve strength and mobility independence. Goals Bed Mobility Goal Contact Guard Assistance Transfer Goal Minimal Assistance,Front Wheeled Walker Gait Goal Minimal Assistance,Front Wheel Walker Gait Distance 75 Days to Meet Goals 5 Frequency of Treatment Frequency Of Treatment Twice a Day Treatment Plan Physical Therapy Treatment Plan Bed Mobility Training,Transfer Training,Gait Training, Therapeutic Exercise,Balance Retraining,Post Op Education, Discharge Planning,Hot or Cold Pack,Neuromuscular Re-ed, Coordination Retraining,Manual Therapy Precautions Other Precautions LLE: 50-100 lbs weight bearing Recommendations To Nursing Amount of Assist Needed 2 Person Assist Discharge Recommendations PT Discharge Recommendations SNF Rehab Transportation Needs at Discharge Wheelchair/Cabulance
--- NOTE | 2021-02-19 10:40 | PC.NURSE ---
Addendum entered by Katrin Yee R.N. 02/19/21 14:51: VOIDED ON BSC WITHOUT PROBLEM- ASSIST OF 2 WITH USE OF GAIT BELT/WALKER- PT REFUSED ALL MEDICATIONS THIS AFTERNOON Original Note: PT WITH MANY COMPLAINTS AND FREQUENT QUESTIONING AND EXPLANATIONS FOR HER BEHAVIOR. SHE REMAINS CONFUSED A/O X2 AT BEST, DECLINED ANY BREAKFAST II NEVER TAKE BREAKFAST SHE ALLOWED SUBCUTANEOUS INSULIN ADMINISTRATION PER MD ORDERS AND WOULD ONLY AGREE TO PO ACETAMINOPHEN AND 0.5MG KLONOPIN ( VS THE 1MG ORDER)- MAGALLON REMOVED AND PT HAS NOT VOIDED YET- DID ASSIST TO BSC FOR LARGE LOOSE BROWN STOOL- TELE DC'D
--- NOTE | 2021-02-19 11:20 | PT.IPTN ---
Current Diagnoses Displaced intertrochanteric fracture of left femur, initial encounter for closed fracture (02/17/21) Surgery Performed Operation Date: 02/18/21 12:15 Actual Procedures p Intramedullary Nailing left hip intertrochanteric fracture, open biopsy(Left) - Alina Garay MD Physical Therapy Treatment Note M2 PT-IP Current Condition Start: 02/19/21 11:40 Freq: NEEDED Status: Active Protocol: Document 02/19/21 09:40 AB (Rec: 02/19/21 12:01 AB [email or web address]) Physical Therapy Current Condition Current Condition Evaluation Date 02/19/21 Treatment Diagnosis L hip fx s/p IM roding; breast CA with bone mets; difficulty in walking Onset Date 02/17/21 Precautions Other Precautions per Dr. Garay: LLE: 50-100 # PWB Weight Bearing Status Weight Bearing Status Partial Weight Bearing Allowed Weight Bearing Amount (enter % LLE: 50-100# or #) (%) M3 PT-IP Subjective Start: 02/19/21 11:40 Freq: NEEDED Status: Active Protocol: Document 02/19/21 11:20 AB (Rec: 02/19/21 12:10 AB [email or web address]) Subjective Physical Therapy Visit Type Type Treatment Note Visit Start Time 11:20 Visit Stop Time 11:34 Total Visit Minutes 14 Number of MANAGER PATIENT Visits 0 Physical Therapy Visit Comments Patient Comments Came back after ~ 1 hour as agreed during earlier PT session. Pt stated that PT is a couple of hours late. Pt has a timer set up of when PT will come back and informed pt that PT is early since her timer has not gone up yet. pt stated: Get me into the bed. M4 PT-IP Mobility and Gait Start: 02/19/21 11:40 Freq: NEEDED Status: Active Protocol: Document 02/19/21 11:20 AB (Rec: 02/19/21 12:10 AB [email or web address]) PT-Bed Mobility Assessment Sit to Supine Sit to Supine Maximum Assistance,1 Person Assistance PT-Transfer Assessment Sit to and From Stand Sit to and from Stand Maximum Assistance,2 Person Assistance,Use of Upper Extremities Equipment Transfer Assistive Device Gait Belt,Front Wheeled Walker Orthotic/Prosthetic Devices or Brace: No Transfers Transfer Destination Bed Transfer Technique Stand Step Pivot Transfer Ability Level of Assist Maximum Assistance,2 Person Assistance,Use of Upper Extremities Comments Mobility Comments completed sit to stand from the chair max A x 2 and max cues. required assist and cues for 50-100# LLE weight bearing restriction. pt unable to maintain weight bearing precaution and required max A with all tasks. completed step transfer using FWW max A x 2 and max cues. completed sit to supine max A with BLE elevation to bed. positioned on chair. Left pt with NAC in room. M5 PT-IP Objective Assessments Start: 02/19/21 11:40 Freq: NEEDED Status: Active Protocol: Document 02/19/21 09:40 AB (Rec: 02/19/21 12:01 AB [id number]) Orientation Orientation/Cognition Level of Alertness Confusional State Orientation Name Safety Awareness Decreased Safety Awareness Gross Range of Motion Lower Extremity ROM Assessment Left Impaired Impairments increase LLE guarding and unable to check ROM: pt tends to stiffen LLE during PROM despite cues Strength Lower Extremity Strength Assessment Left Impaired Comments Strength Comments LLE muscle not able to check appropriately due to pt's muscle guarding M6 PT-IP Treatment Start: 02/19/21 11:40 Freq: NEEDED Status: Active Protocol: Document 02/19/21 11:20 AB (Rec: 02/19/21 12:10 AB [email or web address]) Physical Therapy Treatment Education Education Provided Weight Bearing Status,Safety M7 PT-IP Assessment and Plan Start: 02/19/21 11:40 Freq: NEEDED Status: Active Protocol: Document 02/19/21 11:20 AB (Rec: 02/19/21 12:10 AB [id number]) PT Summary Assessment and Plan Potential Rehabilitation Potential Fair Summary Impairments Pain,ROM,Strength,Balance, Coordination,Sensation,Tone, Cognition,Bed Mobility, Transfers,Gait,Activity Tolerance Progress Towards Goals Slow Progress due to Pain,Slow Progress due to Medical Issues,Slow Progress due to Activity Tolerance Assessment Summary pt continues to require max A x 2 and max cues with all tasks. Pt will need SNF rehab to improve strength, activity tolerance and mobility independence. Goals Bed Mobility Goal Contact Guard Assistance Transfer Goal Minimal Assistance,Front Wheeled Walker Gait Goal Minimal Assistance,Front Wheel Walker Gait Distance 75 Days to Meet Goals 5 Frequency of Treatment Frequency Of Treatment Twice a Day Treatment Plan Physical Therapy Treatment Plan Bed Mobility Training,Transfer Training,Gait Training, Therapeutic Exercise,Balance Retraining,Post Op Education, Discharge Planning,Hot or Cold Pack,Neuromuscular Re-ed, Coordination Retraining,Manual Therapy Precautions Other Precautions LLE: 50-100 lbs weight bearing Cranial nerve palsy with pt using L eye patch Recommendations To Nursing Amount of Assist Needed 2 Person Assist Discharge Recommendations PT Discharge Recommendations SNF Rehab Transportation Needs at Discharge Wheelchair/Cabulance
[2021-02-19 11:45] VITALS: BP 133/60; PULSE 101; RESP 14; TEMP 36.3; O2SAT 99
[2021-02-19] MEDS: INSULIN ASPART 100 UNIT/ML INSULN PEN SUBCUT (11:45)
[2021-02-19] MEDS: INSULIN ASPART 100 UNIT/ML INSULN PEN 8 UNIT SUBCUT (11:45)
--- NOTE | 2021-02-19 14:13 | P.PN_ITS ---
Subjective Subjective Interval history: Today she states she is in terrible pain. She does look much more comfortable to me than yesterday. She states that she has not been out of bed, but ENVIRONMENTAL SAMPLER at bedside confirms she has been up to commode. She is insistent on being started back on her home medication including metformin and piqray. She has been informed that she had DKA/HHS and metformin can not treat that level of hyperglycemia, and she has been told she needs to be off piqray as that was the likely inciting medication. Exam Vital Signs (past 8 hours): - 02/19/21 07:35 02/19/21 11:45 Temperature 97.7 F 97.3 F L Pulse Rate 114 H 101 H Respiratory Rate 16 14 Blood Pressure 139/64 133/60 Pulse Oximetry 100 99 Oxygen Delivery Method Room Air Oxygen Flow Rate 0 Narrative Exam Narrative: GENERAL APPEARANCE: lying in bed, no acute distress HEENT: PERRLA, conjunctiva clear, mucous membranes pink and dry, patch over eye NECK/THYROID: neck supple, no JVD, trachea midline. SKIN: [place], warm and dry, no visible rashes or lesions. HEART: regular rate and rhythm, no murmur, no edema LUNGS: clear to auscultation bilaterally, no coarseness crackles or wheezing, no cough present ABDOMEN: Soft, no abdominal tenderness, no guarding, normal bowel sounds EXTREMITIES: Hip with bandage in place that is clean dry and intact, good pulses and sensation in distal foot NEUROLOGIC: AAO x4, no focal neurologic deficits, cranial nerves II-XII grossly intact PSYCH: wants to control own medical care, and dismissive of medical advice Objective Labs Result Diagrams: 02/19/21 04:00 02/19/21 04:00 Labs: Laboratory Results - last 24 hr 02/18/21 02/18/21 02/19/21 19:20 19:20 00:35 WBC RBC Hgb Hct MCV MCH MCHC RDW Plt Count Sodium 133 L 132 L Potassium 3.4 4.1 Chloride 103 103 Carbon Dioxide 17 L 21 L BUN 7 6 L Creatinine 0.7 0.62 Estimated GFR > 60.0 > 60.0 BUN/Creatinine Ratio 10.0 9.7 Glucose 291 H 266 H Calcium 8.9 8.4 Phosphorus 1.4 L Magnesium 1.8 1.6 02/19/21 02/19/21 04:00 04:00 WBC 5.2 RBC 3.55 L Hgb 10.3 L Hct 29.3 L MCV 82.7 MCH 29.1 MCHC 35.2 RDW 14.4 Plt Count 212 Sodium 133 L Potassium 3.7 Chloride 105 Carbon Dioxide 22 BUN 4 L Creatinine 0.56 Estimated GFR > 60.0 BUN/Creatinine Ratio 7.1 Glucose 220 H Calcium 8.7 Phosphorus Magnesium [facility] Medical History Anxiety Breast cancer C5 vertebral fracture Cholecystitis DNR (do not resuscitate) Myelodysplastic syndrome Sixth cranial nerve palsy Surgical History History of lumpectomy of right breast History of lymph node dissection of right axilla Family History Father Congestive heart failure Diabetes mellitus Mother Cancer Social History household members: none Smoking Status: Former smoker alcohol intake: former substance use type: former substance user Assessment & Plan Assessment & Plan narrative: 66-year-old female patient with past medical history of stage IV breast cancer with multiple Mets to the bone, myelodysplastic syndrome, 6 cranial nerve palsy with diplopia, right arm lymphedema, cholecystitis and anxiety presents to the ER following a twisting fall most likely a pathological fracture in the setting of multiple bone metastases and DKA as a complication of chemotherapy with Piqray. 1. Left intertrochanteric proximal femur fracture, acute, now s/p -x-ray left hip finds moderately displaced and angulated intertrochanteric fracture of the left femur. -Dr. Garay orthopedics took to OR 02/18 for intramedullary rodding left femur with open biopsy left femur -the patient has been on long-term opiate therapy with high dose fentanyl patch, will continue and also order breatkthrough PO/IV opiates -dispo for possible SNF 2. Diabetic ketoacidosis, acute, present on admission, improved. -initial labs taken in the ER showed blood sugar 467, CO of 14. Her calculated anion gap 24. -additional labs ordered: Serum ketones 9.07, magnesium 2.1, phosphorus 2.9, hemoglobin A1c 6.4. Lactate is 1.2. -per information provided by the patient's her blood sugars have been being trac ked by her oncologist with hyperglycemia being a complication of use of Piqray chemotherapy. -she had been recently started on metformin 500 mg twice daily which she had taken for 2 days. -dc piqray -IV insulin was continued until gap closed and DKA resolved on morning of 02/19, then switched to SC insulin BID with achs insulin and prandial insulin 3. Reproducible chest pain -has TWI in v1-v4 -troponins negative -consistent with MSK pain, and no concern for cardiac now 4. Stage IV breast cancer with multiple bone metastases, chronic. -the patient received surg cancer care from [facility] at [facility]. -stop piqray due to dka -per PCP not on exemestane 5. Anxiety, chronic -the patient chronically uses clonazepam 1 mg 3 times daily. -patient received clonazepam 1 mg in the emergency department. Will continue her current home regimen prevent withdrawal symptoms. VTE prophylaxis: Contraindicated, pending surgery IV fluid: Normal saline 100 cc/hour Diet: Heart healthy, NPO at midnight Code status: Patient states her wish to be DO NOT RESUSCITATE, she designates her sister and to be her surrogate decision maker.
[2021-02-19 16:04] VITALS: BP 165/97; PULSE 135; RESP 16; TEMP 36.5; O2SAT 95
[2021-02-19 16:20] VITALS: PULSE 105; RESP 18; O2SAT 97
[2021-02-19] MEDS: HYDROCODONE/ACET 5/325 TABLET 1 TAB PO (16:28)
--- NOTE | 2021-02-19 16:40 | PC.NURSE ---
Addendum entered by Zahira Ogden R.N. 02/19/21 20:50: Pt refuses to take her aspirin and decadron, but took the tylenol and klonopin, very suspicious and hesitant to take anything to drink or eat, she finally drank some gingerale with medication administration. Addendum entered by Zahira Ogden R.N. 02/19/21 20:17: Pt states that she will eat a sandwich to Provider Chad FELDMAN, however she states she ate the sandwich, but instead placed it in the emesis bag. Will hold Lantus per provider because she did not eat. Pt states that she does not want water unless it is from a sealed water bottle. Was able to check glucose level, no coverage needed at this time. Will continue to monitor. Addendum entered by Zahira Ogden R.N. 02/19/21 19:27: Pt is refusing vitals, glucose monitoring, food and has made repeated attempts to remove the aquacell dressing covering her surgical site. Refuses redirection or education regarding the importance of leaving her dressing on the surgical site. Addendum entered by Zahira Ogden R.N. 02/19/21 19:10: Updated Provider that pt is continuing to refuse finger sticks for glucose monitoring and continues to refuse to eat. Will hold the 2100 Insulin and Lantus due to our inability to check her actual blood glucose at this time. Bed alarm on, will continue to monitor. Addendum entered by Zahira Ogden R.N. 02/19/21 17:27: Patient continues to refusing finger stick for glucose monitoring, refusing to eat at this time as well, will continue to attempt to check glucose and get patient to eat. Addendum entered by Zahira Ogden R.N. 02/19/21 16:43: Pt refusing finger stick for glucose monitoring, provider notified, new orders in emar, will continue to monitor Original Note: Evening shift note: Pt up in recliner, wishes to get back into bed. A/O to self only, refusing all care with the exception of what she asks for. Dressing to L hip CDI, SpO2 98% on RA, bed low and locked, alarm on, call light within reach, will continue to monitor.
[2021-02-19] MEDS: HYDROMORPHONE 2 MG TABLET PO (19:48)
[2021-02-20] MEDS: HYDROMORPHONE 2 MG TABLET PO ×2 (06:23→12:37)
--- NOTE | 2021-02-20 06:46 | PC.NURSE ---
Sod Farmer Note-Patient slept throughout night, roused at 0130 for vitals-stable, CBG = 227, denied pain or need to void, declines offer of food or fluids. CMS intact to LLE, she has been picking at distal end of Aquacel, secured with tape. In am requested a pain pill, PO Dilaudid given with sip water, denies need to void I'm not drinking any water or eating anything Unable to draw lab from ML, patient refused to have hose inspector and patcher draw labs. Just go away and let me sleep
[2021-02-20 08:00] VITALS: BP 134/60; PULSE 99; RESP 18; TEMP 36.8; O2SAT 100
--- NOTE | 2021-02-20 08:20 | PC.NURSE ---
Addendum entered by Katrin Yee R.N. 02/20/21 14:29: pt transferred to [facility] at approx 1400 via wheelchair cabulance- medicated for pain and anxiety prior to discharge- report called to SHIREEN - all questions answered to her satisfaction Original Note: initial assessment found pt to be resting well- explained plan of attempting to flush and draw blood from mid-line- this was allowed at this time and cbg 188
[2021-02-20 08:35] LABS: BUN Creatinine Ratio 11.3 (6-22); Blood Urea Nitrogen 7 mg/dL (7-17); Carbon Dioxide 23 mmol/L (22-32); Chloride 105 mmol/L (98-107); Estimated Glomerular Filt Rate > 60.0 mL/min (>60); Glucose 182 mg/dL (80-110); HEMOLYSIS 22 (0-50); Potassium 3.9 mmol/L (3.4-5.1); Sodium 135 mmol/L (137-145)
[2021-02-20 08:41] LABS: Hematocrit 28.4 % (36-46); Hemoglobin 9.9 g/dL (12.0-16.0); Mean Corpuscular HGB Conc 34.8 % (30-36); Mean Corpuscular Hemoglobin 29.2 PG (26-34); Mean Corpuscular Volume 84.1 fL (80-100); Platelet Count 170 X10^3/uL (150-400); Red Blood Cell Count 3.37 X10^6/uL (4.0-5.2); Red Cell Distribution Width 14.4 % (11.6-14.8); White Blood Cell Count 3.5 X10^3/uL (4.5-11.0)
--- NOTE | 2021-02-20 09:46 | P.PN_ITS ---
Subjective Subjective Date Patient Seen: 02/20/21 Time Patient Seen: 09:46 Interval history: Postop day 2 left cephalomedullary nail for subtrochanteric femur fracture, suspected pathologic fracture in patient with metastatic breast cancer. Open biopsy was also completed pathology pending. She is doing okay this morning more comfortable than preop still quite sore and just wants to rest. Exam Vital Signs (past 8 hours): - 02/20/21 08:00 Temperature 98.2 F Pulse Rate 99 H Respiratory Rate 18 Blood Pressure 134/60 Pulse Oximetry 100 Oxygen Delivery Method Room Air Oxygen Flow Rate 0 Narrative Exam Narrative: General exam alert and oriented. Respiratory unlabored on room air Musculoskeletal exam. Left lower extremity with dressings in place. Long Aquacel dressing. Thigh is soft. Demonstrates dorsiflexion plantar flexion. Calf is soft. Objective Labs Result Diagrams: 02/20/21 08:16 02/20/21 08:16 Labs: Laboratory Results - last 24 hr 02/20/21 02/20/21 08:16 08:16 WBC 3.5 L RBC 3.37 L Hgb 9.9 L Hct 28.4 L MCV 84.1 MCH 29.2 MCHC 34.8 RDW 14.4 Plt Count 170 Sodium 135 L Potassium 3.9 Chloride 105 Carbon Dioxide 23 BUN 7 Creatinine 0.62 Estimated GFR > 60.0 BUN/Creatinine Ratio 11.3 Glucose 182 H Calcium 9.0 PFSH Medical History Anxiety Breast cancer C5 vertebral fracture Cholecystitis DNR (do not resuscitate) Myelodysplastic syndrome Sixth cranial nerve palsy Surgical History History of lumpectomy of right breast History of lymph node dissection of right axilla Family History Father Congestive heart failure Diabetes mellitus Mother Cancer Social History household members: none Smoking Status: Former smoker alcohol intake: former substance use type: former substance user Assessment & Plan Post-op Postoperative Procedures: Procedures Operation Date: 02/18/21 12:15 Actual Procedures Side Surgeon p Intramedullary Nailing left hip intertrochanteric fracture, open biopsy Left Alina A Garay, MD Postop day 2 cephalomedullary nail subtrochanteric femur fracture left. Open biopsy results pending. May place partial weight-bearing on the left side 50-10 0 lb. As postoperative blood loss anemia related to surgery. Recommend DVT prophylaxis.
[2021-02-20] MEDS: fentaNYL 25 MCG/PATCH TOP (09:51)
[2021-02-20] MEDS: ASPIRIN EC 81 MG TABLET PO (09:54)
[2021-02-20] MEDS: ACETAMINOPHEN 325 MG TABLET 975 MG PO (09:54)
[2021-02-20] MEDS: clonazePAM 0.5 MG TABLET 1 MG PO ×2 (09:55→14:01)
--- NOTE | 2021-02-20 10:47 | CM.DPC ---
Addendum entered by MATEO Nguyen 02/20/21 13:07: ADD: PAMELLA faxed hard copy scripts to [facility] and called to confirm they had everything they needed besides d/c summary that is not yet available, [facility] will double check and provided RN report number. PAMELLA provided report contact number to RN and confirmed d/c packet all ready. RN has updated pt that she is leaving this afternoon and pt still a little drowsy. BF Addendum entered by MATEO Nguyen 02/20/21 12:28: ADD: PAMELLA faxed [facility] copy of patient's insurance cards per their request, updated COVID neg test results, PASGERALD, orders, signed med list to review. Scripts to follow along with d/c summary when available. BF Original Note: DCP Discharge SNF Per Ortho MD and Hospitalist, pt medically stable to d/c to SNF today for ongoing care and chemo meds not recommended to continue at this time until after SNF and follow up with Oncologist. PAMELLA contacted [facility], [facility], Fadia Ribeiro on referral to confirm if there is an accepting SNF ([facility] is full and [facility] is closing and [facility] not accepting admissions on w/e). [facility] may be able to accept if chemo meds not needed and need to utilization review rn notes from past few days and current med list, SW faxed requested clinicals. [facility] can accept today with documentation from MD that chemo meds not needed at SNF and updated COVID and can transport around 1400. PAMELLA updated MD and RN and updated COVID swabbed and pending. PAMELLA updated line fisher and LIBRARY TECHNICIAN for likely 1400 transport via [facility]. Plan: SW to follow for faxing d/c packet to [facility] when available for plan of 1400 transport. MATEO Nguyen
[2021-02-20 12:06] LABS: COVID19 - ADMIT (NP swab/PCR) Negative (Negative)
[2021-02-20] MEDS: ENOXAPARIN 40 MG/0.4 ML SYRINGE SUBCUT (12:37)
[2021-02-20] MEDS: INSULIN GLARGINE 100 UNIT/ML 3ML PEN 10 UNIT SUBCUT (12:38)
--- NOTE | 2021-02-20 15:24 | P.DS_ITS ---
History of Present Illness History of Present Illness Chief complaint: left hip pain after mechanical GLF Narrative: Ms. Zofia Ingram is a 66-year-old female with a past medical history significant for stage IV breast cancer with multiple metastases to the bone, myelodysplastic dysplasia, 6 cranial nerve palsy with diplopia, right arm lymphedema and cholecystitis who presents to the ER via EMS following a twisting fall. The patient states she sustained a mechanical fall when she twisted and her left leg collapsed falling onto her left side.. She reports left leg knee and ankle pain and reports she tried to move her leg but was unable to do so. Patient denies loss of consciousness neck or back pain in the fall. Prior to this event the patient states she was in her usual state health. She reports she has lab work done weekly and follow-up on her breast cancer treatment with a Piqary and exemestane through [employer] and her in college is Dr. Peters. Patient reports abnormally high blood sugars for the last 9 days and was started on metformin 500 mg twice daily 2 days ago. Patient also has chronic pain for which she has fentanyl patch 125 mcg every 3 days that was changed today with oxycodone 10 mg every 4 hours as needed for breakthrough pain. The patient denies complaints of recent illness, fevers or chills. She has had no nasal congestion but endorses dry throat. She denies complaints of chest pain or palpitations adding she has left chest wall pain from the fall. She reports no shortness of breath cough or wheezing. She denies abdominal pain, nausea vomiting. She denies diarrhea or constipation stating her last bowel movement was earlier today. Upon arrival to the ER patient has a temperature 98.7?, heart rate of 89, blood pressure 180/89, respirations 20 saturating 100% on room air with a pain rating of 10/10. X-ray of hip is take which finds a moderately displaced and angulated intertrochanteric fracture of left femur. Rib x-rays are obtained finding no acute injury no fracture. On laboratory analysis the patient has white count of 6.2, hemoglobin of 13.9, hematocrit of 40.6 with platelets 275. On chemistry she has a sodium of 131 potassium of 5.0 the chloride 93 and CO of 14 with an BUN of 18 and creatinine of 1.08. Her nonfasting glucose is 467. Her anion gap is 24. On liver functions she has a total bilirubin 0.7, AST of 31, ALT of 18 alkaline phosphatase 147. Albumin is 4.8. Urinalysis: Positive for protein, glucose, ketones and blood, negative for leukocyte esterase, nitrates wbc's or bacteria. In the ER the patient received Klonopin 1 mg, fentanyl 100 mg, morphine 4 mg and had a Ruiz catheter placed. The patient is admitted to the hospital for left intertrochanteric femur fracture and diabetic ketoacidosis. Additional workup is obtained finding hemoglobin A1c of 6.4, magnesium of 2.2, phosphate of 2.9, troponin 0.17, lactate of 1.1, serum ketones of 9.07. Twelve lead EKG is obtained which finds sinus rhythm with rate of 86 with an incomplete right bundle branch block and ST inversion in V1, V2 V3 and V4. A 1 L boluses ordered with normal saline at 150 cc/hour. Insulin is ordered 5 units x 1 now with rech mary of glucose upon arrival to the floor. When patient arrived on the acute care floor blood sugar was 374 down from 467. At this time is believe the patient could be managed on the acute care floor with hydration and subcutaneous insulin. Discharge Providers Provider Date of admission: 02/17/21 19:49 Discharge Date: 02/20/21 Primary care physician: Yessy Woodson MD Consults: 02/17/21 20:17 Consult to Dietitian, Adult Routine Comment: Reason For Exam: Diabetic ketoacidosis Consult to Discharge Planning Routine Comment: 02/18/21 09:44 Consult to Physician Routine Comment: Consulting Provider: Alina Garay Reason for consultation: left femur fracture Has provider been notified: Yes 02/18/21 17:23 Consult to Discharge Planning Routine Comment: Consult to Physical Therapy Evaluate & Treat Comment: Physician Instructions: Evaluate and Treat Consult to Respiratory Therapy Evaluate & Treat Comment: Physician Instructions: Evaluate and treat Discharge provider: Figueroa Aldridge MD Summary Hospital Course Discharge Diagnosis: 1. Let intertrochanteric proximal femur fracture 2. DKA with diabetes from piqray 3. Stage IV breast cancer with bone mets 4. Chronic Anxiety 5. Opioid dependence 6. Cranial nerve palsy with diplopia 7. Lymphedema of R arm Hospital Course: Ms. Ingram was admitted after a fall found to have a femur fracture. She went to the OR for armaan placement on 02/18. Biopsies were performed to evaluate for possible pathologic fracture. She initially had difficulty with pain control, but after surgery improved greatly. She is tolerant of opiates as she is on fentanyl 125mcg patch q72, at baseline. She was recommended to continue DVT prophylaxis and 50-100 lb wt on her left leg. She should have follow up with Dr. Garay in orthopedics in 1-2 weeks. In addition she was found to be in DKA, she was started on insulin drip which was stopped after her surgery. Her diabetes is thought secondary to her piqray and this was stopped this admission. She is currently not on chemotherapy and will need further discussion with oncologist about cancer options. Her blood sugar improved with stopping piqray and she was not eating significantly so she was discharged on 10U of lantus, but this may need to be adjusted as she eats more and her piqray effects wane. The rest of her medical issues remained stable in the hospital. Discharge time: 35 minutes Status at Discharge Cognitive/behavioral status at discharge: oriented Functional status at discharge: uses cane/walker Overall status at discharge: patient is progressing back to baseline Exam Vital Signs (past 8 hours): - 02/20/21 08:00 Temperature 98.2 F Pulse Rate 99 H Respiratory Rate 18 Blood Pressure 134/60 Pulse Oximetry 100 Oxygen Delivery Method Room Air Oxygen Flow Rate 0 Narrative Exam Narrative: GENERAL APPEARANCE: lying in bed, no acute distress HEENT: PERRLA, conjunctiva clear, mucous membranes pink and dry, patch over eye NECK/THYROID: neck supple, no JVD, trachea midline. SKIN: [place], warm and dry, no visible rashes or lesions. HEART: regular rate and rhythm, no murmur, no edema LUNGS: clear to auscultation bilaterally, no coarseness crackles or wheezing, no cough present ABDOMEN: Soft, no abdominal tenderness, no guarding, normal bowel sounds EXTREMITIES: Hip with bandage in place that is clean dry and intact, good pulses and sensation in distal foot NEUROLOGIC: AAO x4, no focal neurologic deficits, cranial nerves II-XII grossly intact PSYCH: pleasant mood Objective Labs Result Diagrams: 02/20/21 08:16 02/20/21 08:16 Labs: Laboratory Results - last 24 hr 02/20/21 02/20/21 02/20/21 08:16 08:16 11:00 WBC 3.5 L RBC 3.37 L Hgb 9.9 L Hct 28.4 L MCV 84.1 MCH 29.2 MCHC 34.8 RDW 14.4 Plt Count 170 Sodium 135 L Potassium 3.9 Chloride 105 Carbon Dioxide 23 BUN 7 Creatinine 0.62 Estimated GFR > 60.0 BUN/Creatinine Ratio 11.3 Glucose 182 H Calcium 9.0 SARS-CoV-2 (PCR) Negative [facility] Medical History Anxiety Breast cancer C5 vertebral fracture Cholecystitis DNR (do not resuscitate) Myelodysplastic syndrome Sixth cranial nerve palsy Surgical History History of lumpectomy of right breast History of lymph node dissection of right axilla Family History Father Congestive heart failure Diabetes mellitus Mother Cancer Social History household members: none Smoking Status: Former smoker alcohol intake: former substance use type: former substance user Discharge Plan Discharge Plan Patient Disposition: SNF Provider Discharge Comment: Ms. Ingram came in after a fall and was found to have a left intertrochanteric proximal femur fracture. She went to the OR on 02/18 with armaan placed, and biopsies taken. She was recommended to have a 50-100 lb weight bearing to that leg. In addition she was found to have DKA most likely as a complication from her chemotherapy medication piqray. This was stopped, and she should not be on any chemo medications until seeing her oncologist to decide about new therapies. She was started on an insulin drip, but her blood sugars improved with stopping piqray. She was started on lantus but this may be able to be adjusted or stopped going forward. She should be on lovenox for 30 days, or until recommended by her surgeon Dr. Alina Garay. She will need oncology and orthopedic follow up. She has a high threshold for opiates as she is on 125mcg fentanyl patch and vicodin at home. She had good control with PRN oral dilaudid and was ambulating. Discharge orders & Medications Prescriptions: New calcium carbonate 600 mg calcium (1,500 mg) Tablet 600 mg PO DAILY Qty: 7 RF: 0 docusate sodium [DOK] 100 mg Capsule 100 mg PO BID Qty: 14 RF: 0 polyethylene glycol 3350 17 gram Powder In Packet 17 g PO DAILY Qty: 14 RF: 0 magnesium oxide 400 mg (241.3 mg magnesium) Tablet 400 mg PO DAILY Qty: 7 RF: 0 ondansetron 4 mg Tablet,Disintegrating 4 mg PO Q4HR PRN (Reason: Nausea And Vomiting) Qty: 10 RF: 0 hydromorphone [Dilaudid] 2 mg tablet 2 mg PO Q4-6H PRN (Reason: pain) Qty: 10 RF: 0 Lantus Solostar U-100 Insulin 100 unit/mL (3 mL) insulin pen 10 unit SUBCUT QAM Qty: 15 RF: 0 fentanyl 25 mcg/hr Patch 72 Hour 25 mcg topical Q72H Qty: 1 RF: 0 fentanyl 100 mcg/hr Patch 72 Hour 100 mcg topical Q72H Qty: 1 RF: 0 hydrocodone-acetaminophen 5-325 mg Tablet 1 tab PO Q4H PRN (Reason: Pain (Scale Score 4-6)) Qty: 10 RF: 0 clonazepam 0.5 mg Tablet 1 mg PO TID PRN (Reason: Anxiety) Qty: 6 RF: 0 Continued diphenoxylate-atropine 2.5-0.025 mg tablet 1 tab PO PRN PRN (Reason: Diarrhea) RF: 0 dexamethasone 0.5 mg/5 mL solution 5 ml PO BID RF: 0 metformin 500 mg tablet 500 mg PO DAILY RF: 0 clonazepam 1 mg tablet 1 mg PO TID RF: 0 Discontinued fentanyl 100 mcg/hr patch 72 hour 100 mcg topical Q3-4D RF: 0 fentanyl 25 mcg/hr patch 72 hour 25 mcg topical Q3-4D RF: 0 Piqray 250 mg/day (200 mg x1-50 mg x1) tablet 250 mg PO DAILY RF: 0 hydrocodone-acetaminophen 5-325 mg Tablet 1 tab PO Q4H PRN (Reason: Pain (Scale Score 4-6)) RF: 0 Follow up/Referrals: Yessy Woodson MD [Primary Care Provider] - Diet/Activity/Treatments Diet: Carb-consistent/Diabetic Visit Report/Discharge Packet Stand Alone Forms: Surgery Discharge Discharge Data Primary Care Provider: Yessy Woodson Quality MIPS - DC The patient has current or prior documentation of left ventricular ejection fraction (LVEF) less than 40%, or moderate or severely depressed left ventricular systolic function.: No
== END 2021-02-20 14:10 | DRG 477 ==
LOC: ED 19:37 → AC 19:50 → ICU 02-18 02:01
PROVIDERS: Internal Medicine; Orthopaedic Surgery; Admitting Provider Nurse Practitioner Adult Health; Emergency Provider Emergency Medicine; PCP Internal Medicine; Referring Provider Emergency Medicine; Visit Provider Nurse Practitioner Adult Health
PROC: 0QS706Z Reposition Left Upper Femur with Intramedullary Internal Fixation Device, Open Approach (ICD-10-PCS; CPT 27245; principal; 2021-02-18 12:15)
DX: M84.452A Pathological fracture, left femur, initial encounter for fracture (principal); E11.10 Type 2 diabetes mellitus with ketoacidosis without coma; C79.51 Secondary malignant neoplasm of bone; W01.0XXA Fall on same level from slipping, tripping and stumbling without subsequent striking against object, initial encounter; C50.919 Malignant neoplasm of unspecified site of unspecified female breast; D46.9 Myelodysplastic syndrome, unspecified; R07.89 Other chest pain; G89.3 Neoplasm related pain (acute) (chronic); T45.1X5A Adverse effect of antineoplastic and immunosuppressive drugs, initial encounter; Z20.822 Contact with and (suspected) exposure to COVID-19; H49.20 Sixth [abducent] nerve palsy, unspecified eye; H53.2 Diplopia; I97.2 Postmastectomy lymphedema syndrome; F41.9 Anxiety disorder, unspecified; Z66 Do not resuscitate
CPT/HCPCS: 36415; 36592; 51701; 71101; 73502; 73552; 76000; 80048; 80053; 80305; 81001; 82009; 82805; 82962; 83036; 83605; 83735; 83880; 84100; 84484; 85025; 85027; 87635; 87797; 93005; 94762; 96374; 96375; 97162; 97530; 99284; C9803; C9290; J0690; J1170; J1650; J2060; J2250; J2270; J2405; J2704; J3010; J3410; J3480